=== PATIENT | male | born 1950 | race Caucasian/White ===

== ENCOUNTER 2023-11-08 12:21 | Emergency (ER) | payer MEDICARE, OTHER, SELFPAY ==
[2023-11-08 12:23] VITALS: BP 214/100
[2023-11-08 13:00] VITALS: BP 188/78; BP 200/88
--- NOTE | 2023-11-08 13:00 | EDRN ---
Soha ANGUIANO in room w/pt at this time.
--- NOTE | 2023-11-08 13:13 | ED.GENMED ---
History of Present Illness
<Yvrose Hwang PA-C - Last Filed: 11/08/23 20:08>
General
Chief Complaint: Blood Pressure Problem
Source: patient
Exam Limitations: none
Time Seen by Provider: 11/08/23 12:47
Nursing documentation reviewed up to this point in time: agreed with
Travel History
Have you had any contact with someone who has COVID-19?: No
Do you have any symptoms of coronavirus? Fever > 100 degrees, chills, cough, shortness of breath, sore throat, loss of taste or smell, muscle aches, or headache?: No
History of Present Illness
History of Present Illness:
Patient is a 72-year-old male with history hypertension, CAD, hyperlipidemia, diabetes presenting for evaluation of high blood pressure readings at home. Patient states that he was feeling flushed and generally unwell when he checked his blood
pressure earlier this morning and had a reading of 170s/70s. Patient denies any chest pain, shortness of breath, back pain, visual changes, numbness/weakness. He does report a very mild headache that he took some Tylenol earlier today which seemed
to help. He states the headache was a gradual onset and is a 5 out of 10 in severity.
Patient recently had a change in his blood pressure medication from labetalol to nebivolol. He stopped taking labetalol on 10/31. He started Bystolic on 11/05. He has been taking labetalol 200 mg for about a month but was not responding well to the
agent�reporting lower leg swelling and facial tingling. Prior to the labetalol he had been on metoprolol for many years until it seemed to stop controlling his blood pressure a few months ago.
In addition�patient also takes amlodipine and lisinopril for blood pressure management. He sees Dr. Nunn as his insurance processing clerk
Past History
<Yvrose Hwang PA-C - Last Filed: 11/08/23 20:08>
Past History
ED Past Medical History: CAD (1 stent 22 yrs ago), HTN and Other (Diverticulosis)
ED Past Surgical History: Other (Colonoscopy with polyp removal)
Social History
Tobacco: Non-smoker
Personal:
Living: with family
Phy Exam
<Yvrose Hwang PA-C - Last Filed: 11/08/23 20:08>
Physical Exam
Physical Exam:
General: In no apparent distress and non-toxic
Vitals: Hypertensive, otherwise vital signs stable; afebrile
HEENT: Atraumatic, normocephalic; pupils equal round and reactive to light bilaterally, extraocular muscles intact; protecting airway
Neck: appears supple
CV: RRR, heart sounds normal, no evidence of cyanosis
Resp: No evidence of respiratory distress, lungs clear
Abd: Soft, nontender, Non-distended
Extremities: No deformities
Neuro: alert and oriented x 3 to person, place, time; speech normal, sensation fully intact, strength 5/5 in upper and lower extremities, CN II-XII intact
Psych: Normal affect
Skin: Intact, no rashes
Course
<Yvrose Hwang PA-C - Last Filed: 11/08/23 20:08>
Orders/Labs/Results
Orders:
Orders
11/08/23 13:19
Electrocardiogram (*1) Urgent
Reason for Study: Chest Pain
Cardiac Monitoring- Treatment ONCE
EKG- Treatment ONCE
IV Insert/Care/Rem.- Treatment PRN
11/08/23 13:24
Electrocardiogram (*1) Urgent
Reason for Study: Hypertension, Benign
11/08/23 13:25
EKG- Treatment ONCE
11/08/23 13:29
Complete Blood Count/With Diff Urgent
Comprehensive Metabolic Panel Urgent
Troponin I Urgent
11/08/23 14:50
HydrALAZINE [Apresoline] 10 mg PO NOW STA
Abnormal Lab Results
11/08/23
13:29
Absolute Monos (auto) 1.0 H 10^3/uL
(0.1-0.6)
Monocytes % 12.0 H %
(1.7-9.3)
Glucose 105 H mg/dl
(70-99)
11/08/23 13:29
11/08/23 13:29
Vital Signs
Blood pressure: 188/78
Initial and Last Documented VS:
Initial Vital Signs
Temp Pulse Resp BP Pulse Ox
97.8 F 70 16 214/100 98
11/08/23 12:23 11/08/23 12:23 11/08/23 12:23 11/08/23 12:23 11/08/23 12:23
Last Documented Vital Signs
Temp Pulse Resp BP Pulse Ox
97.8 F 52 15 180/75 94
11/08/23 12:23 11/08/23 15:18 11/08/23 15:15 11/08/23 15:18 11/08/23 15:15
<Marta Ray MD - Last Filed: 11/08/23 14:10>
Orders/Labs/Results
Orders:
Orders
11/08/23 13:19
Electrocardiogram (*1) Urgent
Reason for Study: Chest Pain
Cardiac Monitoring- Treatment ONCE
EKG- Treatment ONCE
IV Insert/Care/Rem.- Treatment PRN
11/08/23 13:24
Electrocardiogram (*1) Urgent
Reason for Study: Hypertension, Benign
11/08/23 13:25
EKG- Treatment ONCE
11/08/23 13:29
Complete Blood Count/With Diff Urgent
Comprehensive Metabolic Panel Urgent
Troponin I Urgent
11/08/23 14:50
HydrALAZINE [Apresoline] 10 mg PO NOW STA
Abnormal Lab Results
11/08/23
13:29
Absolute Monos (auto) 1.0 H 10^3/uL
(0.1-0.6)
Monocytes % 12.0 H %
(1.7-9.3)
Glucose 105 H mg/dl
(70-99)
11/08/23 13:29
11/08/23 13:29
Vital Signs
Initial and Last Documented VS:
Initial Vital Signs
Temp Pulse Resp BP Pulse Ox
97.8 F 70 16 214/100 98
11/08/23 12:23 11/08/23 12:23 11/08/23 12:23 11/08/23 12:23 11/08/23 12:23
Last Documented Vital Signs
Temp Pulse Resp BP Pulse Ox
97.8 F 52 15 180/75 94
11/08/23 12:23 11/08/23 15:18 11/08/23 15:15 11/08/23 15:18 11/08/23 15:15
<Yvrose Hwang PA-C - Last Filed: 11/08/23 20:08>
MDM/Problems Addressed
Differential Diagnosis Includes:
Asymptomatic hypertension, hypertensive urgency/emergency, doubt intraparenchymal hemorrhage
MDM/Problems Addressed:
Patient is a 72-year-old male with history as documented presenting for high blood pressure readings at home. On multiple antihypertensives with recent changes by cardiology. He feels 'flushed 'and very dull gradual onset headache, but otherwise
asymptomatic. He denies any chest pain or shortness of breath. He is hypertensive on arrival. Heart rate has been in low 60s. EKG shows sinus bradycardia with occasional PVCs�compared with prior EKG and remains relatively unchanged. He has a
normal neurologic exam. He just started Bystolic about 2 days ago. It is possible that it has not had time to take full effect. Will check basic labs. Given multiple antihypertensives and borderline bradycardic heart rate�will touch base with
cardiology for recommendations on blood pressure management. Patient is extremely well-appearing, no apparent distress. If labs normal�anticipate discharge with cardiology follow-up outpatient.
CBC and CMP without any clinically significant abnormalities.
Discussed with Dr. Garcia, cardiology. He recommends adding hydralazine 10 mg p.o. 3 times daily to current regimen. Recommend that patient call with blood pressure readings on Friday.
Discussed with patient. He is agreeable with medication adjustment. Instructed patient to continue all other medications as will discharge with return precautions, cardiology follow-up outpatient. Patient and patient's comfortable this plan.
All questions answered.
Chronic conditions affecting care:
HTN, HLD, CAD
Acute Exacerbation and/or Progression of Chronic Illness:
Acutely hypertensive
<Yvrose Hwang PA-C - Last Filed: 11/08/23 20:08>
*Pulse Oximetry
Patient hypoxic: no
*EKG
Interpreted by ED Provider?: Yes
EKG Intrepretation Date: 11/08/23
Interpretation: normal
Comparison EKG: changes noted
Heart Rate: 59
Rate: bradycardiac
Rhythm: sinus and PVC's
Ischemia: no ischemia
*Engineering Test Specialist Interpretation
Rate: normal
Interpretation: abnormal
Heart Rate: 64
Rhythm: sinus
*Critical Care Note
Total Time (30-74mins, 75-104mins- exclusive of procedures): Not Applicable
Data Reviewed
Further Testing Considered But Not Given:
CT head�patient reports very gradual onset dull headache relieved with Tylenol
<Yvrose Hwang PA-C - Last Filed: 11/08/23 20:08>
Patient Management
Discussion with other providers: Photoengraving Apprentice (Cardiology)
ED Attending Note
<Yvrose Hwang PA-C - Last Filed: 11/08/23 20:08>
-
Portions of this chart may have been created with voice recognition software.� Occasional wrong word or��sound alike� substitutions may have occurred due to the inherent limitations of voice recognition software.
<Marta Ray MD - Last Filed: 11/08/23 14:10>
ED Attending Note
Patient seen and examined by attending physician: Yes
I performed the substantive portion of visit, reviewed & personally made and approve the management plan that is documented in note by myself or HARSHA.: Yes
ED Attending Note:
Patient looks well and comfortable. He has a normal neurological exam. He denies chest pain or shortness of breath. Patient just started taking Bystolic 10 mg 2 days ago. It may not have been enough time for the Bystolic to be effective. If
labs are stable, patient will likely be able to go home and follow-up with cardiology as an outpatient to have blood pressure rechecked.
Discharge Plan
Departure
Patient Disposition: Home (Routine Discharge)
Date of Disposition: 11/08/23
Time of Disposition: 14:58
Patient with high blood pressure during this ER visit?: Yes
Condition: Good
Covid-19: Not Applicable
Discharge Problem:
Asymptomatic hypertension
Instructions: High Blood Pressure (DC), High blood pressure emergencies
Prescriptions:
New
hydralazine 10 mg tablet
10 mg PO TID 30 Days Qty: 90 0RF
No Action
metoprolol succinate 50 MG tablet extended release 24 hr
50 mg PO DAILY
aspirin 81 MG tablet,delayed release (DR/EC)
81 mg PO DAILY
rosuvastatin [Crestor] 40 MG tablet
40 mg PO QPM
Fiber 6 1,000 MG tablet
3 tab PO BID
Docusate Sodium [Stool Softener] 250 MG Capsule
250 mg PO DAILYPRN PRN (Reason: constipation)
amlodipine 5 MG tablet
5 mg PO DAILY
lisinopril 20 MG tablet
20 mg PO BID
clopidogrel [clopidogrel] 75 mg tablet
75 mg PO DAILY Qty: 90 10RF
pantoprazole [pantoprazole] 40 mg tablet,delayed release (DR/EC)
40 mg PO DAILY Qty: 90 10RF
nitroglycerin [nitroglycerin] 0.4 mg tablet, sublingual
0.4 mg sublingual [id number] PRN (Reason: chest pain) Qty: 25 5RF
hydrochlorothiazide 25 mg tablet
25 mg PO DAILY Qty: 90 5RF
Referrals:
Alona Campos MD [Family Provider] -
Joselo Nunn MD [Active] - Call in 1-3 days for appt
Activity Restrictions/Additional Instructions:
- Return to the emergency department with any severe headache, chest pain, severe abdominal pain, shortness of breath, visual changes, severe back pain, numbness/tingling, weakness, worsening current symptoms, or any other concerns
-You should continue to take your medications as prescribed. You should start the hydralazine 10 Mg 3 times a day as recommended by cardiology
-Is important to stay well-hydrated
-As discussed�you should call your insurance processing clerk on Friday for follow-up
Interventions
Interventions:
*Risk Screen - Suicide Last Done: 11/08/23 12:23
*General Assessment Last Done: 11/08/23 12:23
*Neglect/Abuse Screening Last Done: 11/08/23 12:23
ED- Fall Risk Assessment Last Done: 11/08/23 13:18
*ED COVID-19 Vaccine History Last Done: 11/08/23 13:18
*Nursing Disposition Last Done: 11/08/23 15:30
ED- Cardiac Assessment Last Done: 11/08/23 13:50
ED- Neurological Assessment Last Done: 11/08/23 13:50
ED- Pulmonary Assessment Last Done: 11/08/23 13:50
Discharge Date and Time
Discharge Date/Time: 11/08/23 15:30
[2023-11-08 13:18] VITALS: BMI 29.4
[2023-11-08 13:40] LABS: % Basophils 0.8 % (0-2); % Eosinophils 1.6 % (0-6); % Immature Granulocytes 0.4 % (0-0.5); % Lymphocytes 35.1 % (20.5-51.1); % Neutrophils 50.1 % (42.2-75.2); Absolute Basophils 0.1 10^3/uL (0-0.2); Absolute Eosinophils 0.1 10^3/uL (0-0.7); Absolute Lymphocytes 2.8 10^3/uL (1.2-3.4); Hematocrit 51.9 % (39.0-52.0); Hemoglobin 17.5 g/dL (13.0-18.0); Mean Corp Hgb Conc. 33.7 g/dL (33.0-37.0); Mean Corpuscular Hgb 29.2 pg (27.0-31.0); Mean Corpuscular Volume 86.5 fL (80.0-94.0); Mean Platelet Volume 9.4 fL (7.4-10.4); Nucleated Red Blood Cells % 0 % (-); Platelet Count 224 10^3/uL (130-400); Red Cell Dist. Width 13.9 % (11.5-14.5); White Blood Cell Count 7.9 10^3/uL (4.8-10.8)
[2023-11-08 14:00] VITALS: BP 197/91
[2023-11-08 14:03] LABS: Troponin I 0.016 ng/ml
[2023-11-08 14:09] LABS: ALT (SGPT) 38 U/L (0-50); AST (SGOT) 39 U/L (17-59); Albumin 4.3 g/dl (3.5-5.0); Alkaline Phosphatase 73 U/L (38-126); Blood Urea Nitrogen 19 mg/dl (9-20); Calcium 9.2 mg/dl (8.4-10.2); Carbon Dioxide 23 mmol/L (22-30); Chloride 107 mmol/L (98-107); Estimated Creatinine Clearance 72 ml/min; Glucose 105 mg/dl (70-99); Potassium 4.5 mmol/L (3.5-5.1); Sodium 138 mmol/L (135-145); Total Bilirubin 0.8 mg/dl (0.2-1.3); eGFR > 60.00
[2023-11-08 14:45] VITALS: BP 195/74
[2023-11-08 15:00] VITALS: BP 180/75
[2023-11-08] MEDS: APRESOLINE 10 MG PO (15:18)
== END 2023-11-08 15:30 | disposition home or self-care (01) ==
LOC: EMR 12:21
PROVIDERS: Physician Assistant; EMERGENCY PHYSICIAN Emergency Medicine; FAMILY PHYSICIAN Family Medicine
DX: I10 Essential (primary) hypertension (principal); E11.9 Type 2 diabetes mellitus without complications; E78.00 Pure hypercholesterolemia, unspecified; I25.10 Atherosclerotic heart disease of native coronary artery without angina pectoris
CPT/HCPCS: 99283; 80053; 84484; 85025; 93005

== ENCOUNTER 2023-12-08 15:18 | Emergency (ER) | payer MEDICARE, OTHER, SELFPAY ==
[2023-12-08 15:27] VITALS: BP 185/83
[2023-12-08 15:50] LABS: % Basophils 0.5 % (0-2); % Eosinophils 1.6 % (0-6); % Immature Granulocytes 0.5 % (0-0.5); % Lymphocytes 37.5 % (20.5-51.1); % Monocytes 9.8 % (1.7-9.3); % Neutrophils 50.1 % (42.2-75.2); Absolute Eosinophils 0.1 10^3/uL (0-0.7); Absolute Monocytes 0.8 10^3/uL (0.1-0.6); Hematocrit 46.9 % (39.0-52.0); Hemoglobin 15.9 g/dL (13.0-18.0); Mean Corp Hgb Conc. 33.9 g/dL (33.0-37.0); Mean Corpuscular Hgb 29.3 pg (27.0-31.0); Mean Corpuscular Volume 86.4 fL (80.0-94.0); Mean Platelet Volume 9.5 fL (7.4-10.4); Nucleated Red Blood Cells % 0 % (-); Platelet Count 201 10^3/uL (130-400); Red Blood Cell Count 5.43 10^6/uL (4.70-6.10); Red Cell Dist. Width 14.3 % (11.5-14.5); White Blood Cell Count 7.9 10^3/uL (4.8-10.8)
[2023-12-08 16:02] LABS: ALT (SGPT) 34 U/L (0-50); AST (SGOT) 38 U/L (17-59); Alkaline Phosphatase 90 U/L (38-126); Blood Urea Nitrogen 24 mg/dl (9-20); Carbon Dioxide 22 mmol/L (22-30); Chloride 110 mmol/L (98-107); Glucose 141 mg/dl (70-99); Potassium 4.3 mmol/L (3.5-5.1); Sodium 136 mmol/L (135-145); Total Bilirubin 0.4 mg/dl (0.2-1.3); Total Protein 6.7 g/dl (6.3-8.2); eGFR > 60.00
[2023-12-08 16:14] LABS: NT-proBNP 1030 pg/ml; Troponin I 0.019 ng/ml
[2023-12-08 20:10] VITALS: BMI 29.6
[2023-12-08 20:16] VITALS: BP 197/89
[2023-12-08 21:00] VITALS: BP 183/78
--- NOTE | 2023-12-08 21:11 | ED.GENMED ---
History of Present Illness
General
Chief Complaint: Breathing Problem
Time Seen by Provider: 12/08/23 21:11
Travel History
Have you had any contact with someone who has COVID-19?: No
Do you have any symptoms of coronavirus? Fever > 100 degrees, chills, cough, shortness of breath, sore throat, loss of taste or smell, muscle aches, or headache?: No
History of Present Illness
History of Present Illness:
HPI: The patient presents due to concerns of adverse reaction to spironolactone use. The patient had been on hydrochlorothiazide which was stopped (which was started for further blood pressure control). The HCTZ was switched to spironolactone.
Before the HCTZ, he was on 2 other blood pressure medications. He is still taking lisinopril, amlodipine and metoprolol. He has some vague chest discomfort and some trouble breathing. He does not have a history of heart failure. He has some
cramping in the legs which he has had in the past. He feels that his mouth is dry after starting the spironolactone.
EXAM:
GENERAL: Well appearing in no distress, he is hypertensive
HEENT: Moist oral mucosa
CARDIOVASCULAR: No murmurs, normal heart rate, regular rhythm, No chest wall tenderness
PULMONARY: No respiratory distress, breath sounds are clear and equal
ABDOMEN: Soft with no peritoneal signs, no tenderness
NEUROLOGIC: Excellent strength all extremities, no coordination deficits
PSYCHIATRIC: Appropriate mental status, normal insight and judgement
EXTREMITIES: Nontender, trace bilateral lower extremity edema, moves all extremities equally
SKIN: No rash, no lesions
TIME OF INITIAL ENCOUNTER: 9:30 PM
NUMBER AND COMPLEXITY OF PROBLEMS ADDRESSED AT THE ENCOUNTER
� Chronic conditions affecting care: CAD/UT, high blood pressure, hyperlipidemia, diabetes
� Acute Exacerbation and/or Progression of Chronic Illness: This is an acute problem
� Differential Diagnosis includes: Adverse medication effect, poorly controlled blood pressure, ACS, CHF
AMOUNT AND/OR COMPLEXITY OF DATA TO BE REVIEWED AND ANALYZED
� I performed an independent evaluation of and my interpretation is:
EKG: Sinus 70, normal axis, PACs
CT:
X-rays: I personally reviewed the chest x-ray and agree with radiologist interpretation that there is no acute abnormality
Laboratory Studies: CBC and chemistries relatively unremarkable, troponin 0.019, BNP is 1030
Other:
� Review of other/old records: I reviewed echo report from October 2022, EF was 40 to 45% at that time, there was aortic sclerosis without stenosis
� Clinical information was obtained by an independent historian: I spoke to the at bedside
� Prescriptions/Medications Considered but not given:
� Further testing considered but not performed:
RISK OF COMPLICATIONS AND/OR MORBIDITY OR MORTALITY OF PATIENT MANAGEMENT
� Social determinants of health affecting care: Lives at home
� Discussion with other providers:
� Escalation of care including admission/observation vs risk of discharge considered: The patient appears to perseverate over the fact that he does not tolerate his recent blood pressure medication changes. Most recently he has
not tolerated spironolactone. He is hypertensive here but already taking 3 other antihypertensives. Cardiac workup shows no ACS and symptoms have been ongoing for a week therefore only 1 troponin was obtained. Physical exam is not consistent with
heart failure but BNP is borderline elevated and he has had a decreased EF in the past. Chest x-ray shows no clear acute abnormality. The patient is very well-appearing on reassessment at 10:20 PM. Will use chest pain hotline to ensure close
outpatient follow-up.
Past History
Past History
ED Past Medical History: CAD (1 stent 22 yrs ago), HTN and Other (Diverticulosis)
ED Past Surgical History: Other (Colonoscopy with polyp removal)
Social History
Tobacco: Non-smoker
Personal:
Living: with family
Phy Exam
Physical Exam
Physical Exam:
See HPI
Scores
Heart Failure Risk
Heart Failure Risk Score: Not Applicable
Course
Orders/Labs/Results
Orders:
Orders
12/08/23 15:29
Electrocardiogram (*1) Urgent
Reason for Study: Shortness of Breath
12/08/23 15:30
EKG- Treatment ONCE
12/08/23 15:42
BNP [NT-proBNP] Urgent
Complete Blood Count/With Diff Urgent
Comprehensive Metabolic Panel Urgent
Troponin I Urgent
12/08/23 21:10
CXR2 [CR Chest - 2 Views ] Urgent
Comment:
Reason For Exam: dyspnea
Abnormal Lab Results
12/08/23
15:42
Absolute Monos (auto) 0.8 H 10^3/uL
(0.1-0.6)
Monocytes % 9.8 H %
(1.7-9.3)
Chloride 110 H mmol/L
(98-107)
BUN 24 H mg/dl
(9-20)
Glucose 141 H mg/dl
(70-99)
12/08/23 15:42
12/08/23 15:42
Vital Signs
Initial and Last Documented VS:
Initial Vital Signs
Temp Pulse Resp BP Pulse Ox
98.6 F 73 18 185/83 97
12/08/23 15:27 12/08/23 15:27 12/08/23 15:27 12/08/23 15:27 12/08/23 15:27
Last Documented Vital Signs
Temp Pulse Resp BP Pulse Ox
97.4 F 54 22 178/71 94
12/08/23 20:14 12/08/23 22:15 12/08/23 22:15 12/08/23 22:11 12/08/23 22:15
*Critical Care Note
Total Time (30-74mins, 75-104mins- exclusive of procedures): Not Applicable
ED Attending Note
-
Portions of this chart may have been created with voice recognition software.� Occasional wrong word or��sound alike� substitutions may have occurred due to the inherent limitations of voice recognition software.
Discharge Plan
Departure
Prescriptions:
No Action
metoprolol succinate 50 MG tablet extended release 24 hr
50 mg PO DAILY
aspirin 81 MG tablet,delayed release (DR/EC)
81 mg PO DAILY
rosuvastatin [Crestor] 40 MG tablet
40 mg PO QPM
Fiber 6 1,000 MG tablet
3 tab PO BID
Docusate Sodium [Stool Softener] 250 MG Capsule
250 mg PO DAILYPRN PRN (Reason: constipation)
amlodipine 5 MG tablet
5 mg PO DAILY
lisinopril 20 MG tablet
20 mg PO BID
clopidogrel [clopidogrel] 75 mg tablet
75 mg PO DAILY Qty: 90 10RF
pantoprazole [pantoprazole] 40 mg tablet,delayed release (DR/EC)
40 mg PO DAILY Qty: 90 10RF
nitroglycerin [nitroglycerin] 0.4 mg tablet, sublingual
0.4 mg sublingual [id number] PRN (Reason: chest pain) Qty: 25 5RF
hydrochlorothiazide 25 mg tablet
25 mg PO DAILY Qty: 90 5RF
hydralazine 10 mg tablet
10 mg PO TID 30 Days Qty: 90 0RF
Referrals:
Alona Campos MD [Family Provider] -
Interventions
Interventions:
*Risk Screen - Suicide Last Done: 12/08/23 15:27
*General Assessment Last Done: 12/08/23 15:27
*Neglect/Abuse Screening Last Done: 12/08/23 15:27
*ED COVID-19 Vaccine History Last Done: 12/08/23 15:27
ED- Cardiac Assessment Last Done: 12/08/23 20:19
ED- Pulmonary Assessment Last Done: 12/08/23 20:19
Discharge Date and Time
Print Language: JAPANESE
[2023-12-08 22:11] VITALS: BP 178/71
== END 2023-12-08 22:58 | disposition home or self-care (01) ==
LOC: EMR 15:18
PROVIDERS: Emergency Medicine; EMERGENCY PHYSICIAN Emergency Medicine; FAMILY PHYSICIAN Family Medicine
DX: R07.89 Other chest pain (principal); R06.00 Dyspnea, unspecified; R25.2 Cramp and spasm; T50.0X5A Adverse effect of mineralocorticoids and their antagonists, initial encounter; I10 Essential (primary) hypertension; I25.10 Atherosclerotic heart disease of native coronary artery without angina pectoris; K57.90 Diverticulosis of intestine, part unspecified, without perforation or abscess without bleeding; Z79.899 Other long term (current) drug therapy; Z95.5 Presence of coronary angioplasty implant and graft; Z91.040 Latex allergy status; Z91.048 Other nonmedicinal substance allergy status; Z79.82 Long term (current) use of aspirin
CPT/HCPCS: 99283; 71046; 80053; 83880; 84484; 85025; 93005

== ENCOUNTER → 2024-06-23 08:52 | Outpatient (REF) | payer MEDICARE, OTHER, SELFPAY | LOC: RAD 08:52 | PROVIDERS: ATTENDING PHYSICIAN Surgery Vascular Surgery; FAMILY PHYSICIAN Family Medicine | DX: I73.9 Peripheral vascular disease, unspecified (principal); I65.23 Occlusion and stenosis of bilateral carotid arteries | CPT/HCPCS: 93880; 93922; 93925; 93978 ==

== ENCOUNTER 2024-08-29 12:46 | Inpatient (IN) | payer MEDICARE, OTHER, SELFPAY ==
[2024-08-29] VITALS (8 sets, daily range): BP systolic 144–182; BP diastolic 69–86; BMI 29.8; BMI 28.7
--- NOTE | 2024-08-29 10:18 | ED.GENMED ---
History of Present Illness
General
Chief Complaint: Breathing Problem
Source: patient and records
Time Seen by Provider: 08/29/24 10:00
History of Present Illness
History of Present Illness:
73-year-old male with past medical history of previous VT, CAD post stenting, hypertension, hyperlipidemia, tcp-wsvnopd-yhqodazhf diabetes presenting to the ER with what he states is at least 2 weeks of shortness of breath without any other
associated symptoms. Patient notes that prior to [place] he had subjective fever, chills and a cough that lasted for a few days and resolved but patient does not believe he had the shortness of breath until a week or 2 after this. He states he
went to his family doctor because he was feeling maybe he had a little bit of postnasal drip and throat irritation, started on prednisone a couple of days ago but has not had any relief and still feels short of breath. Patient states symptoms do
not seem to be exertional but he does note when he was out in the cold the other day and walking into an office he felt very symptomatic from that. Patient denies any lower extremity edema, chest pain, palpitations, diaphoresis, abdominal pain,
nausea, vomiting. Patient does note following his illness his also became ill and is starting to feel little bit better. No other concerns at this time
Past History
Past History
ED Past Medical History: CAD (1 stent 22 yrs ago), HTN, Hypercholesterolemia, NIDDM, VT and Other (Diverticulosis)
ED Past Surgical History: Other (Colonoscopy with polyp removal)
Social History
Tobacco: Non-smoker
Alcohol: None
Drug: None
Personal:
Living: with family
Review of Systems
Review of Systems
All Other Systems: ROS reviewed and negative except as documented in HPI and ROS
Phy Exam
Physical Exam
Physical Exam:
GENERAL: Alert , in no apparent distress, overweight
EYE: conjunctiva clear
NECK: Supple
ENT: o/p clr, mmm.
CARDIAC: Regular rate and rhythm, occasional ectopy
LUNGS: Clear breath sounds bilaterally, no acute respiratory distress, no wheezes/rales/rhonchi
NEUROLOGICAL: Alert and oriented
SKIN: Warm and dry, skin intact.
MUSCULOSKELETAL: well perfused. No edema
PSYCH: Normal and appropriate interaction.
Scores
Heart Failure Risk
Heart Failure Risk Score: Not Applicable
Heart Score for Chest Pain Patients
STEMI patient?: Not applicable
Withdrawal Assessment of Alcohol
Withdrawal Assessment Completed?: Not applicable
Course
Orders/Labs/Results
Orders:
Orders
08/29/24 09:42
Electrocardiogram (*1) Urgent
Reason for Study: Shortness of Breath
EKG- Treatment ONCE
CR Chest - 2 Views Urgent
Comment:
Reason For Exam: sob
08/29/24 10:58
Complete Blood Count/With Diff Urgent
Comprehensive Metabolic Panel Urgent
NT-proBNP Urgent
TSH Urgent
Troponin I Urgent
08/29/24 12:24
Admit/Transfer Patient As Directed
Co-Sign Provider:
Level of Care: Inpatient admission
Assign to:: Telemetry
Physician / Group: Dr. Marc Forrest
Diagnosis: Elevated Troponin
Reason for Telemetry: Other
Other Reason for Telemetry: New Left Bundle Branch Block
Date to Stop Telemetry: 08/31/24
Time to Stop Telemetry: 11:00
Reason for Hospitalization: Elevated Troponins with new Left Bundle Branch Block seen on ECG
Expected length of stay greater than two midnights?: Yes
ELOS- Estimated Length of Stay in days: 3
I certify the patient meets the requirements for IP care: Yes
08/29/24 12:25
PRN Pain Medication Management As Directed
May give lesser potent ordered pain med per pt: Yes
preference::
Protocol:: Medication orders for pain may be administered in a
manner that supports deferring to patient preference
when the pt is:
- Requesting an ordered lesser potent pain medication.
Least to most potent pain medications are defined
as: acetaminophen < NSAID < tramadol < opioids
(morphine, oxycodone, hydromorphone).
- Requesting a lesser dose of the same medication IF
ORDERED.
- Requesting a less intrusive route of administration
if both routes are prescribed by the provider (PO <
IV).
08/29/24 12:28
Code Status As Directed
Resuscitation Status: Do not resuscitate
Reached after discussion with pt or family/Healthcare POA: Yes
DNR Bracelet Application ONCE
08/29/24 12:38
Echo 2D MMode Color/Doppler Routine
Reason for Study: SOB
08/29/24 12:41
CT Chest PE Study Urgent
Comment:
Reason For Exam: PE
08/31/24 11:00
DC Protocol for Telemetry ONCE
Abnormal Lab Results
08/29/24
10:58
WBC 12.7 H 10^3/uL
(4.8-10.8)
Abs Immat Gran (auto) 0.3 H 10^3/uL
(0-0.05)
Absolute Neuts (auto) 8.2 H 10^3/uL
(1.4-6.5)
Absolute Monos (auto) 1.6 H 10^3/uL
(0.1-0.6)
Immature Gran % 2.3 H %
(0-0.5)
Lymphocytes % 19.8 L %
(20.5-51.1)
Monocytes % 12.3 H %
(1.7-9.3)
BUN 24 H mg/dl
(9-20)
Glucose 179 H mg/dl
(70-99)
Troponin I 0.046 H* ng/ml
Total Protein 6.2 L g/dl
(6.3-8.2)
08/29/24 10:58
08/29/24 10:58
Vital Signs
Initial and Last Documented VS:
Initial Vital Signs
Temp Pulse Resp BP Pulse Ox
97.6 F 62 18 174/79 97
08/29/24 09:40 08/29/24 09:40 08/29/24 09:40 08/29/24 09:40 08/29/24 09:40
Last Documented Vital Signs
Temp Pulse Resp BP Pulse Ox
97.6 F 76 19 161/83 92
08/29/24 09:40 08/29/24 12:15 08/29/24 12:15 08/29/24 12:00 08/29/24 12:15
MDM/Problems Addressed
Differential Diagnosis Includes:
Pneumonia, CHF, myocarditis/pericarditis, atypical ACS presentation, valvular disease, cardiac dysrhythmia
MDM/Problems Addressed:
73-year-old male presenting to the ER for evaluation of shortness of breath that has been gradually worsening over the last 2+ weeks. Patient does endorse a recent upper respiratory infection prior to this with symptoms seemingly resolved. He is
hemodynamically stable here, no acute respiratory distress. He does have significant arterial disease in his past medical history. EKG and chest x-ray were ordered from triage with patient's EKG showing a new left bundle branch block and frequent
PVCs. Due to the new left bundle branch block combined with patient's past medical history will consult with cardiology as patient may need further intervention/testing. Labs ordered.
Chronic conditions affecting care: CAD
Acute Exacerbation and/or Progression of Chronic Illness: CAD
*Radiology
Radiology exam reviewed: radiology read reviewed
*Pulse Oximetry
Patient hypoxic: no
*EKG
Interpreted by ED Provider?: Yes
Heart Rate: 70
Rate: normal
Rhythm: sinus and PVC's
QRS Pattern: left bundle branch block
*Wire Wheeler Interpretation
Rate: normal
Rhythm: sinus and PVC's
*Critical Care Note
Total Time (30-74mins, 75-104mins- exclusive of procedures): Not Applicable
Data Reviewed
Review of Other/Old Records Reveals: Labs, Records and Operative Reports
Patient Management
Discussion with other providers: Hospitalist and [facility]
Escalation/DeEscalation of care consider admission/obs:
Patient has a slightly elevated troponin at 0.046 and BN P elevated at greater than 3000. Chest x-ray shows small bilateral pleural effusions. At this time still unclear etiology for patient's shortness of breath. Could still potentially be
myocarditis, PE also considered given the elevated BNP and troponin although symptoms do not seem to be too suggestive of a PE, still question valvular disease as well. Notified cardiology team who will consult on the patient. Hospitalist team
accepts for continued evaluation and treatment
ED Attending Note
-
Portions of this chart may have been created with voice recognition software.� Occasional wrong word or��sound alike� substitutions may have occurred due to the inherent limitations of voice recognition software.
Discharge Plan
Departure
Patient Disposition: Admit
Date of Disposition: 08/29/24
Time of Disposition: 11:43
Presentation/result/management discussed w/ accepting MD/DO: Hospitalist
Discharge Problem:
Shortness of breath, Elevated troponin
Interventions
Interventions:
*Risk Screen - Suicide Last Done: 08/29/24 11:00
*General Assessment Last Done: 08/29/24 11:00
*Neglect/Abuse Screening Last Done: 08/29/24 11:00
ED- Fall Risk Assessment Last Done: 08/29/24 11:00
*ED COVID-19 Vaccine History Last Done: 08/29/24 11:00
ED- Cardiac Assessment Last Done: 08/29/24 11:00
ED- Pulmonary Assessment Last Done: 08/29/24 11:00
[2024-08-29 11:10] LABS: % Basophils 0.6 % (0-2); % Eosinophils 0.6 % (0-6); % Immature Granulocytes 2.3 % (0-0.5); % Lymphocytes 19.8 % (20.5-51.1); % Monocytes 12.3 % (1.7-9.3); % Neutrophils 64.4 % (42.2-75.2); Absolute Basophils 0.1 10^3/uL (0-0.2); Absolute Eosinophils 0.1 10^3/uL (0-0.7); Absolute Immature Granulocytes 0.3 10^3/uL (0-0.05); Absolute Lymphocytes 2.5 10^3/uL (1.2-3.4); Absolute Monocytes 1.6 10^3/uL (0.1-0.6); Absolute Neutrophils 8.2 10^3/uL (1.4-6.5); Hematocrit 49.8 % (39.0-52.0); Hemoglobin 16.6 g/dL (13.0-18.0); Mean Corp Hgb Conc. 33.3 g/dL (33.0-37.0); Mean Corpuscular Hgb 29.7 pg (27.0-31.0); Mean Corpuscular Volume 89.2 fL (80.0-94.0); Mean Platelet Volume 9.3 fL (7.4-10.4); Nucleated Red Blood Cells % 0 % (-); Platelet Count 207 10^3/uL (130-400); Red Blood Cell Count 5.58 10^6/uL (4.70-6.10); White Blood Cell Count 12.7 10^3/uL (4.8-10.8)
[2024-08-29 11:24] LABS: ALT (SGPT) 26 U/L (0-50); AST (SGOT) 26 U/L (17-59); Albumin 3.7 g/dl (3.5-5.0); Alkaline Phosphatase 74 U/L (38-126); Blood Urea Nitrogen 24 mg/dl (9-20); Calcium 8.6 mg/dl (8.4-10.2); Carbon Dioxide 26 mmol/L (22-30); Chloride 104 mmol/L (98-107); Estimated Creatinine Clearance 79 ml/min; Glucose 179 mg/dl (70-99); Sodium 138 mmol/L (135-145); Total Protein 6.2 g/dl (6.3-8.2); eGFR > 60.00
[2024-08-29 11:39] LABS: NT-proBNP 3140 pg/ml; Troponin I 0.046 ng/ml
[2024-08-29 11:56] LABS: TSH 2.07 uIU/ml (0.47-4.68)
--- NOTE | 2024-08-29 12:05 | EDRN ---
Soha Corona PA in room w/ pt at this time.
--- NOTE | 2024-08-29 12:08 | W.PN.UPDATE ---
Update Note
Progress Note Update
I personally performed a history and physical exam of the patient and discussed management with the resident. I reviewed the resident's note and agree with the documented findings and plan of care HPI/CC.
73-year-old male presents with a chief complaint of shortness of breath. He had URI symptoms in early July 2024 which improved but now shortness of breath returns. Denies chest pain.
Gen: NAD, AAOx3.
Eyes: EOMI, PERRLA, no scleral icterus.
Neck: supple.
CV: RRR, +S1/S2, no m/r/g.
Resp: CTAB, no rales, wheezes, or rhonchi.
Abd: +BS, soft, NT, ND
Skin: No rashes.
Neuro: CN 2-12 intact, non-focal.
Psych: Normal mood and affect.
Lab Results
08/29/24
10:58
WBC 12.7 H
RBC 5.58
Hgb 16.6
Hct 49.8
MCV 89.2
MCH 29.7
MCHC 33.3
RDW 14.0
Plt Count 207
MPV 9.3
Abs Immat Gran (auto) 0.3 H
Absolute Neuts (auto) 8.2 H
Absolute Lymphs (auto) 2.5
Absolute Monos (auto) 1.6 H
Absolute Eos (auto) 0.1
Absolute Basos (auto) 0.1
Immature Gran % 2.3 H
Neutrophils % 64.4
Lymphocytes % 19.8 L
Monocytes % 12.3 H
Eosinophils % 0.6
Basophils % 0.6
Nucleated RBC % 0
Sodium 138
Potassium 4.0
Chloride 104
Carbon Dioxide 26
BUN 24 H
Creatinine 0.9
Estimated Creat Clear 79
eGFR > 60.00
Glucose 179 H
Calcium 8.6
Total Bilirubin 1.0
AST 26
ALT 26
Alkaline Phosphatase 74
Troponin I 0.046 H*
Mcv-T-Mpxtnyglrzq Pept 3140
Total Protein 6.2 L
Albumin 3.7
TSH 2.07
CXR: Small bilateral pleural effusions, new since previous radiograph. Cephalization of vascular markings, suggesting elevated pulmonary venous pressures. No definite Colten B lines are identified.
SOB:
-ECG (read by me): SR with PVCs @ 70, new LBBB
-proBNP 3140
-trop 0.046, suspect nonischemic myocardial injury, cont to trend
-URI sxs started beginning Jul 2024, got steroids
-differential broad at this time and includes mild acute CHF, myocarditis, mild reactive airway syndrome
-monitor on tele
-c/s cards
-check CTA chest
-check echo
Other problems:
Essential HTN: cont Norvasc/Lisinopril/BB
CAD (h/o LAD stenting): Cont BB/ASA/statin
GERD: cont PPI
HLD: cont statin
DM2: SSI/accuchecks/diabetic diet/check a1c
--- NOTE | 2024-08-29 12:23 | EDRN ---
Dr. Forrest in room w/ pt at this time.
--- NOTE | 2024-08-29 12:51 | HPS.HSE ---
Family Physician
-
Family Physician: Alona Campos
Chief Complaint
-
Shortness of Breath
History of Present Illness
73 year old male with a past medical history of previous RI, CAT post stenting, hypertension, hyperlipidemia, and non-insulin dependent diabetes presents to the [facility] ED with shortness of breath that has last at least 2 weeks. Patient
has had no other symptoms alongside this shortness of breath. He was seen with his who said that he has had upper respiratory illness symptoms since the beginning of July which included fever and chills. His chills resolved but his
shortness of breath continued to linger. He went to his PCP who prescribed him some prednisone but that did not help with his cough/throat closing like sensation at all. Patient states that his shortness of breath mostly occurs when he is outside in
the cold and walking to his office. Patient has no other complaints or issues at this time.
Medical History
Past Medical History
Past Medical History: Reports CAD (Stent 22 years ago), HTN, Hypercholesterolemia, NIDDM, RI and Other (Diverticulosis)
Past Surgical History: Reports Other (Colonoscopy w/ polyp removal)
Social History
Tobacco: Former Smoker
Alcohol: None
Drug: None
Personal:
Living: With Family
Family History
Family History: Not pertinent
Allergies / Home Medications
Allergies reflects when Allergies were last updated in [facility].
Home Medications with original date entered in [facility]
Allergy/Medication List:
Allergies
Allergy/AdvReac Type Severity Reaction Status Date / Time
adhesive tape Allergy Rash Verified 12/08/23 15:29
latex Allergy Rash Verified 12/08/23 15:29
Home Medications
aspirin 81 mg tablet,delayed release 81 mg PO DAILY Blood clot prevention/tx 11/18/15
metoprolol succinate 50 mg tablet,extended release 24 hr 50 mg PO DAILY Blood pressure 11/18/15
rosuvastatin 40 mg tablet (Crestor) 40 mg PO QPM High cholesterol 11/18/15
Docusate Sodium [Stool Softener] 250 mg PO DAILYPRN PRN constipation 06/08/21
amlodipine 5 mg tablet 5 mg PO DAILY Blood pressure 06/08/21
zlly-vcu-fhroi-akbfvhoxn-udnxpddh-dftn-pectin 1,000 mg tablet (Fiber 6) 3 tab PO BID Supplement 06/08/21
lisinopril 20 mg tablet 20 mg PO BID Blood pressure 06/08/21
clopidogrel 75 mg tablet 75 mg PO DAILY #90 tabs 06/07/22
hydrochlorothiazide 25 mg tablet 25 mg PO DAILY #90 tabs 06/07/22
nitroglycerin 0.4 mg sublingual tablet 0.4 mg sublingual [id number] PRN chest pain #25 tabs 06/07/22
pantoprazole 40 mg tablet,delayed release 40 mg PO DAILY #90 tabs 06/07/22
hydralazine 10 mg tablet 10 mg PO TID 1 month #90 tabs 11/08/23
Review of Systems
-
History Source: Patient
Constitutional: Denies Fever, Fatigue, Sleep Disturbance or Chills
EENT: Reports No Symptoms
Respiratory: Reports Trouble Breathing
Cardiac: Denies Chest Pain or Palpitations
Abdomen/GI: Denies Abdominal Pain, Nausea or Vomiting
: Reports No Symptoms
Musculoskeletal: Denies Edema
Skin: Reports No Symptoms
Neurological: Reports No Symptoms
Endocrine: Reports No Symptoms
Hematologic/Lymphatic: Reports No Symptoms
Psych: Reports Calm
Physical Exam
Vital Signs
Vital Signs
Temp Pulse Resp BP Pulse Ox
97.6 F 76 19 161/83 92
08/29/24 09:40 08/29/24 12:15 08/29/24 12:15 08/29/24 12:00 08/29/24 12:15
Physical Exam
General: Well Developed, Well Nourished, No Apparent Distress, Comfortable and Conversant
HEENT: NormoCephalic, Anicteric, Moist mucous membranes and Atraumatic
Respiratory: Clear and Non Labored Respirations
Cardiac: S1/S2 and Regular Rhythm
GI: Soft, Non Tender, Non Distended and Normal Bowel Sounds
Musculoskeletal: No Clubbing, No Cyanosis and No Edema
Skin: Warm and Dry
Neuro: Awake, Alert, Oriented, AO x 3, No Motor Deficits and No Sensory Deficits
Psych: Calm and Intact Judgment/Insight
Laboratory Results
-
08/29/24 10:58
08/29/24 10:58
Laboratory Results
Total Bilirubin 1.0 mg/dl (0.2-1.3) 08/29/24 10:58
AST 26 U/L (17-59) 08/29/24 10:58
ALT 26 U/L (0-50) 08/29/24 10:58
Alkaline Phosphatase 74 U/L (38-126) 08/29/24 10:58
Troponin I 0.046 ng/ml H* 08/29/24 10:58
Data Reviewed
-
Medical Tests (Nuc Med, Echo, EKG etc): Report Reviewed by me, Discussed with Physician, Discussed with Patient and Discussed with Family
Lab Data: Labs Reviewed by me, Discussed with Physician, Discussed with Patient and Discussed with Family
Impression/Plan
-
Assessment:
73 year old male with a past medical history of previous RI, CAD s/p stent, hypertension, hyperlipidemia, and non-insulin dependent diabetes presented to the [facility] ER with worsening shortness of breath. Patient was afebrile and had no
other symptoms other than shortness of breath. Patient was found to have elevated troponins and a new LBBB seen on EKG. Patient was admitted to the hospital for further monitoring and treatment.
Plan:
#Shortness of breath
-CXR showed Small bilateral pleural effusions, new since previous radiograph. Cephalization of vascular markings, suggesting elevated pulmonary venous pressures. No definite Colten B lines are identified.
-O2 saturation Stable on Room Air
-CTA ordered, awaiting results
#History of CAD
-elevated troponins
-Trend troponins
-Cardiology consulted, input appreciated
-LBBB seen on ECG
-repeat ECG in the AM
-Echocardiogram ordered, awaiting results
-Continue Aspirin
#Hyperlipidemia
-Continue rosuvastatin
#GERD
-continue Protonix
#Hypertension
-Continue home medications of metoprolol, lisinopril and amlodipine
#NIDDM
-insulin sliding scale
-Accuchecks
-continue monitoring blood glucose
-hold glimepiride
Code: Limited DNR
DVT Prophylaxis: Lovenox
[2024-08-29] MEDS: TYLENOL 1000 MG PO (12:58)
--- NOTE | 2024-08-29 13:06 | EDRN ---
Pt c/o H/A and requested tylenol and just got order and administered it at this time.
--- NOTE | 2024-08-29 13:47 | EDRN ---
On placing bracelet pt told me that he would want CPR, defibrillation. He does not want to be on a ventilator only. This RN will TT physician on this account and hold on placing a DNR bracelet as pt is talking limited DNR.
--- NOTE | 2024-08-29 13:58 | EDRN ---
Troponin #2 drawn and sent at this time.
[2024-08-29 14:28] LABS: Troponin I 0.047 ng/ml
--- NOTE | 2024-08-29 15:12 | PTCARENOTE ---
pt admitted from ED awake and alert x3 no c/o pain. LCTA on RA. Heart sounds distant. NSR with BBB. abd round and full. + BSx4. No tenderness. cont b&B. skin CDI. weak pp b/l. No edema. Spouse at bedside. CB in reach. instructed on use.
[2024-08-29 15:22] LABS: HDL Cholesterol 58 mg/dl; LDL Cholesterol, Calculated 52 mg/dl; Total Cholesterol 166 mg/dl (50-199); Triglyceride 283 mg/dl (10-149); Very Low Density Lipoprotein 56 mg/dl (0-30)
[2024-08-29 16:28] LABS: Glucose - Point of Care 102 mg/dl (70-99)
[2024-08-29] MEDS: LOVENOX 40 MG SC (17:06)
[2024-08-29] MEDS: CRESTOR 40 MG PO (17:06)
[2024-08-29] MEDS: ZESTRIL 20 MG PO (19:41)
[2024-08-29] MEDS: TYLENOL 650 MG PO (19:49)
[2024-08-29 20:24] LABS: Troponin I 0.071 ng/ml
[2024-08-29 21:36] LABS: Glucose - Point of Care 103 mg/dl (70-99)
[2024-08-30] VITALS (7 sets, daily range): BP systolic 117–177; BP diastolic 60–89; PULSE 67–68; O2SAT 96; BMI 27.8
[2024-08-30 03:01] LABS: Troponin I 0.066 ng/ml
[2024-08-30] MEDS: ZESTRIL 20 MG PO ×2 (06:21→21:13)
[2024-08-30 06:23] LABS: Hematocrit 49.6 % (39.0-52.0); Hemoglobin 16.9 g/dL (13.0-18.0); Mean Corp Hgb Conc. 34.1 g/dL (33.0-37.0); Mean Corpuscular Hgb 29.8 pg (27.0-31.0); Mean Corpuscular Volume 87.5 fL (80.0-94.0); Mean Platelet Volume 9.5 fL (7.4-10.4); Platelet Count 189 10^3/uL (130-400); Red Blood Cell Count 5.67 10^6/uL (4.70-6.10)
[2024-08-30] MEDS: TYLENOL 650 MG PO ×2 (06:27→15:32)
[2024-08-30 06:57] LABS: ALT (SGPT) 24 U/L (0-50); AST (SGOT) 23 U/L (17-59); Albumin 3.6 g/dl (3.5-5.0); Alkaline Phosphatase 76 U/L (38-126); Blood Urea Nitrogen 19 mg/dl (9-20); Calcium 8.9 mg/dl (8.4-10.2); Carbon Dioxide 25 mmol/L (22-30); Chloride 101 mmol/L (98-107); Estimated Creatinine Clearance 79 ml/min; Glucose 177 mg/dl (70-99); Potassium 4.4 mmol/L (3.5-5.1); Sodium 136 mmol/L (135-145); Total Bilirubin 1.4 mg/dl (0.2-1.3); Total Protein 6.2 g/dl (6.3-8.2); eGFR > 60.00
[2024-08-30 07:44] LABS: Hepatitis C Antibody Negative (Negative)
[2024-08-30 07:46] LABS: Glucose - Point of Care 170 mg/dl (70-99)
--- NOTE | 2024-08-30 08:02 | W.PN.HOSP.TC ---
Addendum entered and electronically signed by Calin Mendoza MD 08/30/24 22:54:
Attending Addendum-
I saw and evaluated the patient. I reviewed the resident�s note and agree with findings and plan as documented in the resident�s note. Sub: Feel improved. Less SOB. Seen with present. Denies CP palps cough. Full 12 point ROS reviewed and
negative except as documented Exam: Vitals reviewed in chart GEN-NAD lungs CTA B/L heart RRR no M/R/G abd soft NT obese LE no edema
Plan:
# Acute on Chronic HFmrEF
- not on lasix at home
- responding well to IV lasix
- dropping weight with excellent urine O/P
- echo 08/30- Normal left ventricular size with mildly reduced systolic function. LVEF 40-45%.
The basal to apical inferolateral wall is thinned and akinetic, and there is
hypokinesis of the basal to mid inferior and inferoseptal adkins.
- OP stress/cath if desired
# NIMI
- trops trending down
- f/u as OP with cards
- Cardiology consulted, input appreciated OP f/u
- LBBB seen on ECG
- Continue Aspirin
#Hyperlipidemia
-Continue rosuvastatin
#GERD
-continue Protonix
#Hypertension
-Continue home medications of metoprolol, lisinopril and amlodipine
#NIDDM
-insulin sliding scale
-Accuchecks
-continue monitoring blood glucose
-hold glimepiride restart on DC
# PAD/CAD + stent
- s/p Aorto bifem bypass graft
- cont asa Crestor metoprolol
Code: Limited DNR
DVT Prophylaxis: Lovenox
Dispo DC in am
Time spent coordinating care, review of plan of care with resident, personally reviewed records in EMR, med rec, consults, notes, labs, radiology, d/w nursing and POA � 58 mins
Original Note:
Today's Communication/Plan
-
;/
Assessment / Plan
Assessment / Plan
Assessment/plan
#Shortness of breath
-S/p URI symptoms July 2024, was prescribed steroids.
-CXR: Small bilateral pleural effusions, No definite Colten B lines
-proBNP on presentation 3140
-Cardiology consulted, input appreciated
-Started on IV Lasix 40 mg twice daily by cardiology for concerns of CHF
-Echocardiogram LVEF 40 to 45%
#Elevated troponin level
#Nonischemic myocardial injury in the setting of increased work of breathing
-Denies any acute chest pain
-Echocardiogram LVEF 40-to 45%
-Cardiology following
#CAD s/p stent
-Continue ASA/statin/beta-blockers
#Essential hypertension
-Continue home regimen, lisinopril, metoprolol, amlodipine
#LBBB on EKG
-Was present on EKG in 2021
-Monitor on telemetry
#Hyperlipidemia
-Continue home statin
#T2DM
-A1c 6.9 08/29/2024
-Coverage with SSI
-Holding home glimepiride
CODE STATUS ; limited DNR
DVT prophylaxis; Lovenox
Anticipated Discharge: 24 - 48 hours
Subjective/Interval History
-
Patient seen at bedside. Denies complaints. Denies chest pain, denies shortness of breath
Objective Data
-
Labs:
Laboratory Results
08/30/24
06:11
WBC 11.0 H
Hgb 16.9
Hct 49.6
Plt Count 189
Sodium 136
Potassium 4.4
Chloride 101
Carbon Dioxide 25
BUN 19
Creatinine 0.9
Glucose 177 H
Calcium 8.9
Total Bilirubin 1.4 H
AST 23
ALT 24
Alkaline Phosphatase 76
Vital Signs:
Vital Signs
Temp Pulse Resp BP Pulse Ox
98.0 F 64 17 177/87 95
08/30/24 07:28 08/30/24 07:28 08/30/24 07:28 08/30/24 07:28 08/30/24 07:28
I&O
08/29/24 08/30/24 08/31/24
06:59 06:59 06:59
Intake Total 780 / 780
Balance 780 / 780
Review of Systems
-
All other systems: Reviewed and negative (Except as documented)
Physical Exam
-
General: Well Developed and Well Nourished
Respiratory: Clear to Auscultation
Cardiac: Regular Rhythm and S1/S2
GI: Soft, Nontender, Nondistended and Normal Bowel Sounds
Musculoskeletal: No Clubbing and No Edema
Neuro: Awake, Alert, Oriented and AO x 3
Psych: Calm
--- NOTE | 2024-08-30 08:12 | CON.CAR ---
Addendum entered and electronically signed by Ramone De Luna MD 08/30/24 10:02:
I saw and examined the patient.
The [employer]IAL [employer]PERATOR [employer]'s note was reviewed and I agree with the note.
Comment:
73 y/o male with ICM EF 40-45%, CAD with stenting ([facility] 2021: SHAWNA to LAD for ISR, RCA occluded, 40% mLCx), hypertension, dyslipidemia, DM2, obesity, PAD with hx LE bypass, carotid disease, who is here for evaluation of SOB. He previously was known
to Dr. Nunn and most recently saw Dr. Villegas in the office. He has been feeling short of breath for the past few weeks. Had a course of steroids from 08/23-08/28 but still did not feel better so presented to the ER. He denies chest pain. This
does not feel like his CAD in the past. On admission he was noted to have proBNP 3000, troponin 0.046 -> 0.071 -> 0.066. Chest CT showed small bilateral pleural effusions. ECG with sinus bradycardia and left bundle branch block (present in 2021).
On exam he is well-appearing, has a regular rate and rhythm with no murmurs, rubs, gallops. Lungs are clear to auscultation bilaterally and he has no lower extremity edema. Echocardiogram is pending. His dyspnea may be due to mild heart failure
exacerbation given his elevated NT proBNP and effusions on chest CT. We will trial IV Lasix 40 mg twice daily to see if he improves. I did offer stress testing to see if this is an anginal equivalent but he does not want to do a stress test as
these 'made him feel like he was going to in the past '. His troponin elevation is likely nonischemic myocardial injury due to mild heart failure exacerbation. We will follow-up an echocardiogram to see if there are any new wall motion
abnormalities.
Original Note:
Consultation
Consultation Request
Date/Time Consultation Requested: 08/29/24 0723
Date/Time Consultation Performed: 08/30/24 0810
Requesting Provider: Dr. Dee Coombs
Performing Provider: Ching FRENCH for Dr. De Luna
Reason for Consultation: Elevated troponin, abnormal EKG
Medical History
-
Chief Complaint: SOB
History of Present Illness:
73 y/o male with ICM EF 40-45%, hypertension, dyslipidemia, DM2, obesity, PAD with hx LE bypass, carotid disease, CAD with hx stenting - most recent 2021 LAD ISR- otherwise, occluded RCA, 40% mid circ who is here for evaluation of SOB. Briefly, he
had a 'bad cold' with cough and chills in early-mid July. He was placed on prednisone course by PCP. Over the past 2-3 weeks, he had had SOB and ELAM. Worse in cold. He does not monitor weight at home. Denies LE edema. He is admitted for further
management. Chest imaging shows small b/l pleural effusions, increased vascular cephalization, and atelectasis. BNP 3140. In this setting, troponin levels are minimally elevated (up to 0.071). He denies chest pain. His EKG shows LBBB. Previous EKG's
reviewed and this appears to be intermittent (seen in 2021 as well). He is in no distress at the time of my assessment.
Past Medical History
Past Medical History: CAD, HTN, Hypercholesterolemia, NIDDM and Other (PAD)
Social History
Tobacco: Non-Smoker
Family History
Family History: CAD (Dad)
Allergies / Home Medications
Allergy/AdvReac Type Severity Reaction Status Date / Time
adhesive tape Allergy Rash Verified 12/08/23 15:29
latex Allergy Rash Verified 12/08/23 15:29
�Medication �Instructions �Recorded �Confirmed �Type
aspirin 81 mg tablet,delayed 81 mg PO DAILY Blood clot 11/18/15 08/29/24 History
release prevention/tx
rosuvastatin 40 mg tablet (Crestor) 40 mg PO QPM High cholesterol 11/18/15 08/29/24 History
lisinopril 20 mg tablet 20 mg PO BID Blood pressure 06/08/21 08/29/24 History
acetaminophen 325 mg tablet 650 mg PO DAILYPRN PRN mild pain 08/29/24 08/29/24 History
amlodipine 10 mg tablet 10 mg PO DAILY 08/29/24 08/29/24 History
coQ10 (ubiquinol) 100 mg capsule 100 mg PO DAILY 08/29/24 08/29/24 History
(Qunol Roby CoQ10)
docusate sodium 250 mg capsule 250 mg PO DAILYPRN PRN constipation 08/29/24 08/29/24 History
glimepiride 4 mg tablet 4 mg PO BID 08/29/24 08/29/24 History
metoprolol succinate 100 mg 100 mg PO DAILY 08/29/24 08/29/24 History
tablet,extended release 24 hr
omeprazole 40 mg capsule,delayed 40 mg PO DAILY 08/29/24 08/29/24 History
release
Review of Systems
-
History Source: Patient
All other systems: Negative unless noted
Respiratory: Trouble Breathing
Physical Exam
Vital Signs
Temp Pulse Resp BP Pulse Ox
98.0 F 64 17 177/87 95
08/30/24 07:28 08/30/24 07:28 08/30/24 07:28 08/30/24 07:28 08/30/24 07:28
Lab Results
08/30/24 06:11
08/30/24 06:11
Troponin I 0.066 ng/ml H* 08/30/24 02:13
Gaw-X-Lvthqzbaswe Pept 3140 pg/ml 08/29/24 10:58
Physical Exam
General: Well Developed, Well Nourished and No Apparent Distress
HEENT: Normocephalic and Anicteric
Respiratory: Clear and Non Labored Respirations
Cardiac: Regular Rhythm
GI: Distended (softly)
Musculoskeletal: No Edema
Skin: Warm and Dry
Neuro: AO x 3
Psych: Calm
Impression / Plan
-
SOB:
-suspect there is a component of mild acute HFmEF
-Chest imaging shows small b/l pleural effusions, increased vascular cephalization, and atelectasis. BNP 3140.
-IV lasix, which requires intensive monitoring
-he was recently on steroid course. He does not take diuretic as OP
-update echo
Abnormal troponin:
-suspect acute non-ischemic myocardial injury in setting of CHF
-he has no CP
-check echo
CAD with hx stenting:
-most recent cath as below
-no CP
-continue ASA, statin, and BB
HTN:
-elevated here, but patient monitors at home and reports it is around 130/60's-70's at home
-continue lisinopril, metoprolol, amlodipine. Per OP notes, intolerant to nebivolol, labetalol, HCTZ, spironolactone, hydralazine.
LBBB:
-intermittent
PAD: ASA, statin
HLD: statin
DM2: on medical therapy, monitor sugars
Data:
Cath 06/07/22: LAD: 60-70% stenosis within and just distal to a stent placed in 1998. Circumflex: Long 40% mid circumflex stenosis. The small ramus intermedius has significant proximal disease-this is a 1.0 mm vessel. The large OM 3 has 40% ostial
stenosis. RCA: The RCA is proximally occluded. The small distal PDA fills via [id number] collaterals; RCA is unchanged compared with the prior study from 2000. The LAD disease was flow-limiting and SHAWNA placed to mid LAD.
Echo 10/31/22: Moderately reduced left ventricular systolic function with akinesis and adjacent hypokinesis of the basal inferior and lateral segments. Estimated left ventricular ejection fraction is 40-45%. Aortic sclerosis without stenosis. No
significant functional valvular disease.
Data Reviewed
-
EKG: Tracing Personally Visualized and interpreted (SB with LBBB)
Radiology: Report Reviewed by me ( CXR: Small bilateral pleural effusions. Cephalization of vascular markings, suggesting elevated pulmonary venous pressures.)
CT Scan: Report Reviewed by me (Small bilateral pleural effusions. No pulmonary embolus. Mild bibasilar atelectasis versus scarring.)
Medical Tests (Nuc Med, Echo etc): Report Reviewed by me ( Echo and cath results as noted below)
Labs: Labs Reviewed by me
[2024-08-30 08:49] LABS: Glycohemoglobin (HgbA1c) 6.9 % (4.0-5.6)
[2024-08-30] MEDS: PROTONIX 40 MG PO (09:01)
[2024-08-30] MEDS: TOPROL XL 100 MG PO (09:01)
[2024-08-30] MEDS: ASPIR LOW (ENTERIC COATED) 81 MG PO (09:01)
[2024-08-30] MEDS: NORVASC 10 MG PO (09:02)
--- NOTE | 2024-08-30 10:34 | PTOTSP ---
Patient independent with bed mobility, transfers, ambulation and stair climbing. No skilled PT needs, will sign off.
[2024-08-30] MEDS: LASIX 40 MG IV ×2 (10:43→15:31)
[2024-08-30 11:30] LABS: Glucose - Point of Care 126 mg/dl (70-99)
[2024-08-30 16:40] LABS: Glucose - Point of Care 126 mg/dl (70-99)
[2024-08-30] MEDS: CRESTOR 40 MG PO (17:16)
[2024-08-30] MEDS: LOVENOX 40 MG SC (17:16)
[2024-08-30 21:25] LABS: Glucose - Point of Care 133 mg/dl (70-99)
[2024-08-31 03:00] VITALS: BP 125/60
[2024-08-31 06:00] VITALS: BMI 27.5
[2024-08-31 07:05] VITALS: BP 156/74
[2024-08-31 07:08] LABS: Hematocrit 48.7 % (39.0-52.0); Hemoglobin 16.6 g/dL (13.0-18.0); Mean Corp Hgb Conc. 34.1 g/dL (33.0-37.0); Mean Corpuscular Hgb 29.4 pg (27.0-31.0); Mean Corpuscular Volume 86.2 fL (80.0-94.0); Mean Platelet Volume 9.1 fL (7.4-10.4); Platelet Count 188 10^3/uL (130-400); Red Blood Cell Count 5.65 10^6/uL (4.70-6.10); Red Cell Dist. Width 13.7 % (11.5-14.5); White Blood Cell Count 9.8 10^3/uL (4.8-10.8)
--- NOTE | 2024-08-31 07:45 | W.PN.HOSP.TC ---
Addendum entered and electronically signed by Calin Mendoza MD 09/01/24 00:14:
Attending Addendum-
I saw and evaluated the patient. I reviewed the resident�s note and agree with findings and plan as documented in the resident�s note. Sub: Feels greatly improved. Less SOB. Seen with present. Compains of PND but doesnt want to try any meds.
Denies CP palps cough. Full 12 point ROS reviewed and negative except as documented Exam: Vitals reviewed in chart GEN-NAD lungs CTA B/L heart RRR no M/R/G abd soft NT obese LE no edema
Plan:
# Acute on Chronic HFmrEF
- not on lasix at home- refusing to take on DC
- responded well to IV lasix
- droped weight with excellent urine O/P 8kgs!
- echo 08/30- Normal left ventricular size with mildly reduced systolic function. LVEF 40-45%.
The basal to apical inferolateral wall is thinned and akinetic, and there is
hypokinesis of the basal to mid inferior and inferoseptal adkins.
- OP stress/cath if desired (refusing stress while IP)
# NIMI
- trops trended down
- f/u as OP with cards
- Cardiology consulted, input appreciated OP f/u
- LBBB seen on ECG
- Continue Aspirin
#Hyperlipidemia
-Continue rosuvastatin
#GERD
-continue Protonix
#Hypertension
-Continue home medications of metoprolol, lisinopril and amlodipine
#NIDDM
-insulin sliding scale
-Accuchecks
-continue monitoring blood glucose
-hold glimepiride restart on DC
# PAD/CAD + stent
- s/p Aorto bifem bypass graft
- cont asa Crestor metoprolol
Code: Limited DNR
DVT Prophylaxis: Lovenox
Dispo DC home d/w cards
Time spent coordinating care, DC planning, review of DC plan of care with resident, transition of care, review of records, med rec/scripts sent electronically, consults, notes, d/w consultants/cards, nursing, family/, and CM� 34 mins
Original Note:
Today's Communication/Plan
-
;/
Assessment / Plan
Assessment / Plan
Assessment/plan
#Shortness of breath
-S/p URI symptoms July 2024, was prescribed steroids.
-CXR: Small bilateral pleural effusions, No definite Colten B lines
-proBNP on presentation 3140
-Cardiology consulted, input appreciated
-Started on IV Lasix 40 mg twice daily trial by cardiology for concerns of CHF.
-Patient declined to be on any standing diuretics on d/c
-Weight is down 1kg.
-Echocardiogram LVEF 40 to 45%.The basal to apical inferolateral wall is thinned and akinetic, and there is
hypokinesis of the basal to mid inferior and inferoseptal adkins.
-Follow-up outpatient cardiology for further workup including stress/cath
-Follow-up with Pulm as an outpatient for eval.
#Elevated troponin level
#Nonischemic myocardial injury in the setting of increased work of breathing
-Denies any acute chest pain
-Echocardiogram LVEF 40-to 45%
-Cardiology following
#CAD s/p stent
-Continue ASA/statin/beta-blockers
#Essential hypertension
-Continue home regimen, lisinopril, metoprolol, amlodipine
#LBBB on EKG
-Was present on EKG in 2021
-Monitor on telemetry
#Hyperlipidemia
-Continue home statin
#T2DM
-A1c 6.9 08/29/2024
-Coverage with SSI
-Holding home glimepiride
CODE STATUS ; limited DNR
DVT prophylaxis; Lovenox
Anticipated Discharge: Today
Subjective/Interval History
-
Patient seen at bedside. Reports shortness of breath has improved. He denies acute chest pain, palpitations
Objective Data
-
Labs:
Laboratory Results
08/31/24
06:46
WBC 9.8
Hgb 16.6
Hct 48.7
Plt Count 188
Sodium Pending
Potassium Pending
Chloride Pending
Carbon Dioxide Pending
BUN Pending
Creatinine Pending
Glucose Pending
Calcium Pending
Total Bilirubin Pending
AST Pending
ALT Pending
Alkaline Phosphatase Pending
Vital Signs:
Vital Signs
Temp Pulse Resp BP Pulse Ox
97.6 F 59 18 156/74 97
08/31/24 07:05 08/31/24 07:05 08/31/24 07:05 08/31/24 07:05 08/31/24 07:05
I&O
08/30/24 08/31/24 09/01/24
06:59 06:59 06:59
Intake Total 780 / 780 960 / 1440 480 / 480
Balance 780 / 780 960 / 1440 480 / 480
Review of Systems
-
All other systems: Reviewed and negative (Except as documented)
Physical Exam
-
General: Well Developed, Well Nourished and No Apparent Distress
Respiratory: Clear to Auscultation
Cardiac: Regular Rhythm and S1/S2
GI: Soft, Nontender, Nondistended and Normal Bowel Sounds
Musculoskeletal: No Edema
Neuro: Awake, Alert, Oriented and AO x 3
Psych: Calm
[2024-08-31 07:49] LABS: Glucose - Point of Care 139 mg/dl (70-99)
[2024-08-31] MEDS: TOPROL XL 100 MG PO (07:53)
[2024-08-31] MEDS: PROTONIX 40 MG PO (07:53)
[2024-08-31] MEDS: ASPIR LOW (ENTERIC COATED) 81 MG PO (07:53)
[2024-08-31] MEDS: NORVASC 10 MG PO (07:53)
[2024-08-31] MEDS: ZESTRIL 20 MG PO (07:53)
[2024-08-31] MEDS: LASIX 40 MG IV ×2 (07:54→16:21)
[2024-08-31 08:15] LABS: ALT (SGPT) 18 U/L (0-50); AST (SGOT) 20 U/L (17-59); Albumin 3.4 g/dl (3.5-5.0); Alkaline Phosphatase 63 U/L (38-126); Blood Urea Nitrogen 23 mg/dl (9-20); Calcium 8.5 mg/dl (8.4-10.2); Carbon Dioxide 29 mmol/L (22-30); Chloride 99 mmol/L (98-107); Estimated Creatinine Clearance 65 ml/min; Glucose 174 mg/dl (70-99); Potassium 4.2 mmol/L (3.5-5.1); Sodium 136 mmol/L (135-145); Total Bilirubin 1.3 mg/dl (0.2-1.3); Total Protein 5.9 g/dl (6.3-8.2); eGFR > 60.00
[2024-08-31 11:05] VITALS: BP 127/64
[2024-08-31 11:37] LABS: Glucose - Point of Care 143 mg/dl (70-99)
--- NOTE | 2024-08-31 14:29 | W.PN.CD ---
Today's Communication / Plan
-
Plan for outpatient stress testing
Patient does not wish to make any medication changes prior to discharge
Impression / Plan
-
73 y/o male with ICM EF 40-45%, CAD with stenting ([facility] 2021: SHAWNA to LAD for ISR, RCA occluded, 40% mLCx), hypertension, dyslipidemia, DM2, obesity, PAD with hx LE bypass, carotid disease, who is here for evaluation of SOB.
Mortgage Closer: Dr. Villegas
Shortness of breath
-Etiology remains unclear. There may be a component of heart failure given his elevated NT proBNP and small bilateral effusions on chest x-ray, but he does not feel vastly improved with Lasix. There is also likely some component of reactive airway
disease given it seems to be worse in cold weather.
-He does not want to be on any standing diuretics because he 'already pees enough'
-He is now agreeable to an outpatient Lexiscan stress test to rule out ischemia
-I offered trial of a long-acting nitrate to empirically treat if this is an anginal equivalent but he does not wish to make any medication changes at this time
-Recommend pulmonary evaluation as an outpatient
-We will set him up for an outpatient stress test
Ischemic cardiomyopathy (LVEF 40-45%)
-He is currently on a beta-lacy and an EDNA inhibitor. I did raise the idea of Entresto but he does not want to make any medication changes at this time
-He has been intolerant to spironolactone in the past.
-Consideration of SGLT2 inhibitor as an outpatient
-Continue aspirin 81 mg and rosuvastatin 40 mg. LDL 52 this admission.
Abnormal troponin:
-Peak of 0.071
-suspect acute non-ischemic myocardial injury in setting of CHF
-he has no CP
HTN:
-continue lisinopril, metoprolol, amlodipine. Per OP notes, intolerant to nebivolol, labetalol, HCTZ, spironolactone, hydralazine.
LBBB:
-intermittent
PAD: ASA, statin
HLD: statin
DM2: on medical therapy, monitor sugars
Data:
Cath 06/07/22: LAD: 60-70% stenosis within and just distal to a stent placed in 1998. Circumflex: Long 40% mid circumflex stenosis. The small ramus intermedius has significant proximal disease-this is a 1.0 mm vessel. The large OM 3 has 40% ostial
stenosis. RCA: The RCA is proximally occluded. The small distal PDA fills via uyto-ch-elhkm collaterals; RCA is unchanged compared with the prior study from 2000. The LAD disease was flow-limiting and SHAWNA placed to mid LAD.
Echo 10/31/22: Moderately reduced left ventricular systolic function with akinesis and adjacent hypokinesis of the basal inferior and lateral segments. Estimated left ventricular ejection fraction is 40-45%. Aortic sclerosis without stenosis. No
significant functional valvular disease.
Subjective: Patient feels about the same as yesterday. He is now agreeable to outpatient stress test. Telemetry reveals normal sinus rhythm. Yesterday he was given 40 mg IV Lasix twice daily. Weight is 91.8 kg from 92.8 kg. Creatinine is stable.
Physical Exam
Vital Signs/Labs
Vital Signs
Temp Pulse Resp BP Pulse Ox
97.7 F 56 19 127/64 98
08/31/24 11:05 08/31/24 11:05 08/31/24 11:05 08/31/24 11:05 08/31/24 11:05
08/30/24 08/31/24 09/01/24
06:59 06:59 06:59
Actual Weight 92.85 kg 91.898 kg
08/31/24 06:46
08/31/24 06:46
Triglycerides Cancelled 08/29/24 14:27
LDL Cholesterol, Calc Cancelled 08/29/24 14:27
VLDL Cholesterol, Calc Cancelled 08/29/24 14:27
HDL Cholesterol Cancelled 08/29/24 14:27
TSH 2.07 uIU/ml (0.47-4.68) 08/29/24 10:58
08/29/24
10:58
Fap-X-Yqwuxmrvtjf Pept 3140
LAB Results
08/29/24 08/29/24 08/29/24
10:58 13:56 17:18
Troponin I 0.046 H* 0.047 H* 0.060 H* D
08/29/24 08/30/24
19:51 02:13
Troponin I 0.071 H* 0.066 H*
Physical Exam
Constitutional: No acute distress and Comfortable
Cardiovascular: Rhythm & rate is regular, Pedal edema is absent, S1S2 is normal and Murmur/rub/gallop absent
Respiratory: Respiratory effort normal and Lungs clear to auscul.
Neuro/Psych: AO x 3
Data Reviewed
-
Date of Service: August 31, 2024
Medical Decision Making: Reviewed Test Results, Independent Historian Assessment, Test Interpretation and Review of Case with other Provider
EKG: Tracing Personally Visualized and interpreted
Echo: Tracing Personally Visualized and interpreted
Labs: Labs Reviewed by me
Old Records: Reviewed
[2024-08-31 15:04] VITALS: BP 152/75
[2024-08-31 16:37] LABS: Glucose - Point of Care 128 mg/dl (70-99)
--- NOTE | 2024-08-31 16:45 | CM ---
Met with patient to obtain information for assessment. Patient's was at bedside. Patient stated that he lives with his in a multi-story duplex with 4 steps to enter. He described himself as independent with his ADLs and personal care. He
can do manager behavior, cook, clean and do laundry. Patient drives and can get to all of his appointments and do all of his shopping.
Patient has no DME
He has never had VN
He has not been to a SNF.
Patient has a prescription plan and uses, [facility] in [place] for all of his medications.
His PCP is, Alona Campos
Patient has discharge order in. transporting home. Reviewed IMM and he signed. Now on chart.
Plan: Case management will continue to follow and assist with discharge planning. Home.
--- NOTE | 2024-08-31 18:30 | W.DCSUMMARY ---
Addendum entered and electronically signed by Calin Mendoza MD 09/01/24 00:16:
Read, reviewed, and agree. See same day progress note for additional details. D/W cardiology ok for DC home with f/u set up. patient refusing Lasix on DC or other med changes. Is amenable to Lexiscan stress as OP.
Mando Mendoza MD
Original Note:
Documented by User: Sean Winkler MD, Resident 08/31/24 18:36
Discharge Summary
Discharge Data
Date of Admission: 08/29/24
Date of Discharge: 08/31/24
-
Pending Results: No
Hospital Course
Brief hospital course; This is a 73-year-old male with past medical history of hypertension, dyslipidemia, T2DM, PAD with history of LE bypass, coronary disease,CAD with stenting ([facility] 2021: SHAWNA to LAD for ISR, RCA occluded, 40% mLCx) who presents to
ER 08/29/2024 complaining of shortness of breath. Patient reports prior to he had symptoms of upper respiratory illness including fever, chills, cough and shortness of breath. Shortness of breath continued to linger and she
decided to get evaluated by his PCP. His PCP started him on a course of steroids from 08/23 - 08/28 patient reports he did not feel better. He reports that shortness of breath continued despite completing the steroid course as he decided to come to
the ER for evaluation. On presentation to the ED, patient's blood pressure was 174/79, pulse 62, respiratory to 18, O2 sat 92% on room air. Evaluation with a chest x-ray showed small bilateral pleural effusions. Further evaluation with a CT chest
showed no pulmonary embolus. proBNP on presentation was 3140. Troponin was elevated at 0.046. ECG with sinus bradycardia and left bundle branch block (present in 2021). Cardiology was consulted to evaluate patient. Per cardiology
recommendation, he was given a trial of 40 mg IV Lasix. after administration of Lasix, his weight dropped the next day by 1 kg. Echocardiogram was ordered which showed LVEF 40-45% with no new wall motion abnormalities unchanged from his prior
echo in 2022. During the course of hospital stay, patient reports his shortness of breath improved. He did not require oxygen throughout the course of his hospital stay. Per cardiology, his etiology remained unclear. There may have been a
component of heart failure given his elevated proBNP as per bilateral effusions on chest but patient reports he did not feel improved on Lasix. He declined to be on standing diuretics on discharge. Recommendation at the time of discharge was for
an outpatient Lexiscan stress test to rule out ischemia. In addition, he was offered a trial of long-acting nitrates to empirically treat if this was not an anginal equivalent but patient declined. He will be followed outpatient by cardiology for
an outpatient stress test.
On the day of discharge, patient was awake, alert. S1-S2 present. Lungs were clear to auscultation bilaterally. Abdomen was soft, nontender, nondistended. Extremities show no peripheral edema.
Discharge Plan
-
Patient Disposition: Home (Routine Discharge)
Discharge Diagnosis/Procedures: Shortness of breath
Abnormal troponin level
Essential hypertension
Hyperlipidemia
Condition: Fair
Diet: As tolerated
Activity: No restrictions
Driving Restrictions: As prior to admission
Referrals:
Alona Campos MD [Family Provider] - in less than 1 week
Prescriptions:
Continued
aspirin 81 MG tablet,delayed release (DR/EC)
81 mg PO DAILY
rosuvastatin [Crestor] 40 MG tablet
40 mg PO QPM
lisinopril 20 MG tablet
20 mg PO BID
acetaminophen 325 mg Tablet
650 mg PO DAILYPRN PRN (Reason: mild pain)
metoprolol succinate 100 mg Tablet Extended Release 24 Hr
100 mg PO DAILY
omeprazole 40 mg Capsule,Delayed Release(Dr/Ec)
40 mg PO DAILY
amlodipine 10 mg Tablet
10 mg PO DAILY
glimepiride 4 mg Tablet
4 mg PO BID
docusate sodium 250 mg Capsule
250 mg PO DAILYPRN PRN (Reason: constipation)
coQ10 (ubiquinol) [Qunol Roby CoQ10] 100 mg Capsule
100 mg PO DAILY
Discharge Orders:
Discharge Patient (As Directed); Ordered 08/31/24
Ordered By: Sean Winkler
Discharge Date and Time
Discharge Date/Time: 08/31/24 17:05
Print Language: FAROESE

Documented by User: Calin Mendoza MD 09/01/24 00:10
Discharge Summary
Discharge Data
Date of Admission: 08/29/24
Date of Discharge: 09/01/24
Discharge Plan
-
Patient Disposition: Home (Routine Discharge)
Discharge Diagnosis/Procedures: Shortness of breath
Abnormal troponin level
Essential hypertension
Hyperlipidemia
Condition: Fair
Diet: As tolerated
Activity: No restrictions
Driving Restrictions: As prior to admission
Referrals:
Alona Campos MD [Family Provider] - in less than 1 week
Prescriptions:
Continued
aspirin 81 MG tablet,delayed release (DR/EC)
81 mg PO DAILY
rosuvastatin [Crestor] 40 MG tablet
40 mg PO QPM
lisinopril 20 MG tablet
20 mg PO BID
acetaminophen 325 mg Tablet
650 mg PO DAILYPRN PRN (Reason: mild pain)
metoprolol succinate 100 mg Tablet Extended Release 24 Hr
100 mg PO DAILY
omeprazole 40 mg Capsule,Delayed Release(Dr/Ec)
40 mg PO DAILY
amlodipine 10 mg Tablet
10 mg PO DAILY
glimepiride 4 mg Tablet
4 mg PO BID
docusate sodium 250 mg Capsule
250 mg PO DAILYPRN PRN (Reason: constipation)
coQ10 (ubiquinol) [Qunol Roby CoQ10] 100 mg Capsule
100 mg PO DAILY
Discharge Orders:
Discharge Patient (As Directed); Ordered 08/31/24
Ordered By: Sean iWnkler
Discharge Date and Time
Discharge Date/Time: 08/31/24 17:05
Print Language: FAROESE
== END 2024-08-31 17:05 | disposition home or self-care (01) | DRG 291 ==
LOC: 3 WEST ACU 12:46
PROVIDERS: Nurse Practitioner Family; Physician Assistant Medical; Student in an Organized Health Care Education/Training Program; ADMITTING PHYSICIAN Internal Medicine; ATTENDING PHYSICIAN Family Medicine; EMERGENCY PHYSICIAN Student in an Organized Health Care Education/Training Program; FAMILY PHYSICIAN Family Medicine; OTHER PHYSICIAN Student in an Organized Health Care Education/Training Program
DX: I11.0 Hypertensive heart disease with heart failure (principal); I50.23 Acute on chronic systolic (congestive) heart failure; J98.11 Atelectasis; Z87.891 Personal history of nicotine dependence; I5A Non-ischemic myocardial injury (non-traumatic); I50.9 Heart failure, unspecified; E78.00 Pure hypercholesterolemia, unspecified; E11.9 Type 2 diabetes mellitus without complications; Z79.82 Long term (current) use of aspirin; K21.9 Gastro-esophageal reflux disease without esophagitis; Z66 Do not resuscitate
CPT/HCPCS: 71046; 71275; 80053; 80061; 82962; 83036; 83880; 84443; 84484; 85025; 85027; 86803; 93005; 93306; 97161; 97165; 99285; Q9967

== ENCOUNTER → 2024-09-17 07:24 | Outpatient (REF) | payer MEDICARE, OTHER, SELFPAY | LOC: HWRCS 07:24 | PROVIDERS: ATTENDING PHYSICIAN Student in an Organized Health Care Education/Training Program; FAMILY PHYSICIAN Family Medicine | DX: R06.02 Shortness of breath (principal); I25.5 Ischemic cardiomyopathy; I10 Essential (primary) hypertension; I44.7 Left bundle-branch block, unspecified; I73.9 Peripheral vascular disease, unspecified; E78.2 Mixed hyperlipidemia | CPT/HCPCS: 78452; 93017; A9500; J2785 ==

== ENCOUNTER → 2024-10-14 09:58 | Outpatient (REF) | payer MEDICARE, OTHER, SELFPAY | LOC: HWRAD 09:58 | PROVIDERS: ATTENDING PHYSICIAN Family Medicine; REFERRING PHYSICIAN Specialist | DX: R31.0 Gross hematuria (principal) | CPT/HCPCS: 74176 ==

== ENCOUNTER 2024-11-24 06:21 | Day surgery (SDC) | payer MEDICARE, OTHER, SELFPAY ==
--- NOTE | 2024-11-18 14:21 | PTCARENOTE ---
Patients 08/2024 ECG abnormal- reviwed by Dr. Bell- no additional interventions required
[2024-11-24] VITALS (20 sets, daily range): BP systolic 82–190; BP diastolic 45–95; BMI 27.8
[2024-11-24] MEDS: NORMOSOL-R/PLASMALYTE-A 1000 IV ×2 (11:07→20:28)
[2024-11-24] MEDS: CYSVIEW KIT 100 MG INTRAVES (11:23)
[2024-11-24 11:26] LABS: Glucose - Point of Care 170 mg/dl (70-99)
[2024-11-24 13:24] LABS: Glucose - Point of Care 143 mg/dl (70-99)
[2024-11-24 14:32] LABS: Glucose - Point of Care 146 mg/dl (70-99)
[2024-11-24] MEDS: SYRINGE NON-PUMP 50 MG IRRIG ×2 (14:34→14:35)
[2024-11-24] MEDS: SYRINGE NON-PUMP 50 ML IRRIG ×2 (14:34→14:35)
[2024-11-24] MEDS: SUBLIMAZE 50 MCG IV ×2 (14:51→15:31)
[2024-11-24] MEDS: Pyridium 200 MG PO (15:56)
[2024-11-24] MEDS: ZOFRAN 4 MG IV (16:23)
[2024-11-24] MEDS: VALIUM INJECTION 5 MG IV (17:23)
[2024-11-24] MEDS: TORADOL 15 MG IV (18:51)
[2024-11-24] MEDS: MORPHINE SULFATE 1 MG IV (19:08)
--- NOTE | 2024-11-24 19:44 | PTCARENOTE ---
Transferred back to PACU, given report to Nadia Umana RN. Pt AAOx3, belongings with pt.
[2024-11-24 20:16] LABS: Hematocrit 49.4 % (39.0-52.0); Hemoglobin 16.5 g/dL (13.0-18.0); Mean Corp Hgb Conc. 33.4 g/dL (33.0-37.0); Mean Corpuscular Hgb 29.2 pg (27.0-31.0); Mean Corpuscular Volume 87.4 fL (80.0-94.0); Mean Platelet Volume 9.2 fL (7.4-10.4); Platelet Count 196 10^3/uL (130-400); Red Blood Cell Count 5.65 10^6/uL (4.70-6.10); Red Cell Dist. Width 13.7 % (11.5-14.5)
--- NOTE | 2024-11-24 20:27 | PTCARENOTE ---
PT moved from SDS to PACU, PT to be admitted, spoke with DR Contreras, received order for admit, IV fluids and stat CBC/BMP, PT states he is more comfortable now that his pain is better, VSS, PT in no acute distress
[2024-11-24 20:49] LABS: Glucose - Point of Care 186 mg/dl (70-99)
[2024-11-24 21:08] LABS: Blood Urea Nitrogen 23 mg/dl (9-20); Calcium 8.9 mg/dl (8.4-10.2); Carbon Dioxide 19 mmol/L (22-30); Chloride 102 mmol/L (98-107); Estimated Creatinine Clearance 50 ml/min; Glucose 210 mg/dl (70-99); Potassium 4.8 mmol/L (3.5-5.1); Sodium 133 mmol/L (135-145); eGFR 52.41
--- NOTE | 2024-11-24 21:08 | W.PN.URO.CBU ---
Today's Communication / Plan
-
hand irrgate knox prn clots
Assessment / Plan
-
non tessa=xic no eveidebce clinical bladder injury will admit observe ivf placed knox serial labs
Diagnosis
-
Date of Service: November 24, 2024
-
Patient Diagnosis:post op pain
Post Op Day:
Subjective
-
severe lower abd pain post op turbt no fever chills nausea no abd distension voiding okrequested admit
Objective
-
Vital Signs
Temp Pulse Resp BP Pulse Ox
97.1 F 70 12 144/87 96
11/24/24 20:00 11/24/24 19:01 11/24/24 19:01 11/24/24 20:00 11/24/24 21:05
Laboratory Results
11/24/24 20:08
Review of Systems
-
Abdomen/GI: Abdominal Pain
: Difficulty Voiding and Bleeding
Physical Exam
-
General - well developed, well nourished, no acute distress
Chest - clear bilaterally
Abdomen - soft, non-tender, positive bowel sounds, no CVAT, no incisional pain or distention
Genitalia - normal
Rectal - normal
Skin - warm & dry with no rash
Neuro - AOx3, no motor deficits
Extremities - no clubbing, no cyanosis, no edema
Incision - clean, dry
Dressing - clean, dry, intact
Care Review
Data Reviewed
Discussed with: Nursing
[2024-11-24] MEDS: DETROL LA 4 MG PO (22:40)
[2024-11-24] MEDS: AMARYL 4 MG PO (22:40)
[2024-11-24] MEDS: LR 1000 IV (22:41)
[2024-11-24 22:43] LABS: Glucose - Point of Care 182 mg/dl (70-99)
--- NOTE | 2024-11-25 00:36 | TRANSFER ---
Receive report from OUTSIDE LABORER Nadia - pt arrived to floor via stretcher and was able to move himself by sliding over into the bed. Dx Blue light TURBT - no CBI ordered - confirmed w Dr. Contreras. 18fr catheter w bloody urine, somewhat orange, and some
blood clots noted. Pt requested lunch box, resting comfortably in bed at this time. VSS, call dudley within reach.
[2024-11-25 00:40] VITALS: BP 137/67
[2024-11-25 03:20] VITALS: BP 134/70
[2024-11-25 07:13] VITALS: BP 120/61
[2024-11-25 07:18] LABS: Hematocrit 43.4 % (39.0-52.0); Hemoglobin 14.6 g/dL (13.0-18.0)
[2024-11-25 07:34] LABS: Glucose - Point of Care 68 mg/dl (70-99)
[2024-11-25 07:56] LABS: Glucose - Point of Care 85 mg/dl (70-99)
[2024-11-25 08:02] LABS: ALT (SGPT) 19 U/L (0-50); AST (SGOT) 24 U/L (17-59); Albumin 3.2 g/dl (3.5-5.0); Alkaline Phosphatase 59 U/L (38-126); Blood Urea Nitrogen 26 mg/dl (9-20); Calcium 8.4 mg/dl (8.4-10.2); Carbon Dioxide 24 mmol/L (22-30); Chloride 103 mmol/L (98-107); Estimated Creatinine Clearance 54 ml/min; Glucose 43 mg/dl (70-99); Potassium 3.9 mmol/L (3.5-5.1); Sodium 136 mmol/L (135-145); Total Bilirubin 1.2 mg/dl (0.2-1.3); Total Protein 5.4 g/dl (6.3-8.2); eGFR 57.29
--- NOTE | 2024-11-25 09:29 | W.PN.URO.CBU ---
Today's Communication / Plan
-
discharge
Assessment / Plan
-
resolved post-op pain
Diagnosis
-
Date of Service: November 25, 2024
-
Patient Diagnosis: bladder cancer s/p TURBT
Post Op Day: 1
Subjective
-
'my bladder doesn't hurt now'
feels fit for discharge
Objective
-
Vital Signs
Temp Pulse Resp BP Pulse Ox
97.9 F 73 16 120/61 95
11/25/24 07:13 11/25/24 07:13 11/25/24 07:13 11/25/24 07:13 11/25/24 07:13
Intake and Output
11/24/24 11/25/24 11/26/24
06:59 06:59 06:59
Intake Total 800 / 800
Output Total 550 / 550
Balance 250 / 250
Intake:
IV fluids (Total) 800 / 800
Output:
Urine, Zuniga 550 / 550
Laboratory Results
11/25/24 05:53
11/25/24 05:53
Physical Exam
-
General - well developed, well nourished, no acute distress
Abdomen - soft, non-tender, positive bowel sounds, no distention
Genitalia - Zuniga with yellow urine
[2024-11-25] MEDS: LEVAQUIN 500 MG PO (09:57)
[2024-11-25] MEDS: PROTONIX 40 MG PO (09:58)
[2024-11-25] MEDS: TYLENOL 650 MG PO (09:58)
[2024-11-25] MEDS: ZESTRIL 20 MG PO (09:58)
[2024-11-25] MEDS: COLACE 100 MG PO (09:58)
[2024-11-25] MEDS: AMARYL 4 MG PO (09:58)
--- NOTE | 2024-11-25 09:58 | CM ---
CM met with patient in room. Patient confirmed demographics. Patient lives independently with . Patient does not have a history of VN, SNF or DME. Patient is active with his PCP. patent uses [facility] for medication services.
CM discussed home care options. Patient is agreeable to VN. Referral sent to VN Admission RN.
PLAN: home with [facility]
[2024-11-25] MEDS: NORVASC 10 MG PO (09:59)
--- NOTE | 2024-11-25 10:45 | VNURNOTE ---
Home Health Liaison spoke with patient at bedside to discuss VN nurse/therapy, visits, schedule and homebound status. Patient is agreeable and understands that visits at home will be 2-3 x per week to assess and teach medical management. [facility] 1-2 days after discharge from . [facility] in [facility].
[2024-11-25 11:02] VITALS: BP 137/58
[2024-11-25 12:24] LABS: Glucose - Point of Care 146 mg/dl (70-99)
[2024-11-25] MEDS: LR IV (13:47)
[2024-11-25] MEDS: COLACE PO (13:48)
== END 2024-11-25 14:38 | disposition home or self-care (01) ==
LOC: SDS 06:21
PROVIDERS: Specialist; ATTENDING PHYSICIAN Specialist
DX: C67.9 Malignant neoplasm of bladder, unspecified (principal)
CPT/HCPCS: 52235; 51720; C9738; 88307; 80048; 80053; 82962; 85014; 85018; 85027; A9589

== ENCOUNTER 2024-11-25 20:28 | Emergency (ER) | payer MEDICARE, OTHER, SELFPAY ==
[2024-11-25 20:29] VITALS: BP 155/72
[2024-11-25 21:00] LABS: Urine Albumin 4+ (Neg - Trace); Urine Bilirubin Negative (Negative); Urine Character Slightly Cloudy (Clear); Urine Color Amber; Urine Glucose Negative (Negative); Urine Ketone Negative (Negative); Urine Leukocyte 3+ (Negative); Urine Nitrite Positive (Negative); Urine Occult Blood 4+ (Negative); Urine Urobilinogen Negative (Neg - 1+)
[2024-11-25 21:03] LABS: % Basophils 0.2 % (0-2); % Eosinophils 0.4 % (0-6); % Immature Granulocytes 0.3 % (0-0.5); % Lymphocytes 21.5 % (20.5-51.1); % Monocytes 9.9 % (1.7-9.3); % Neutrophils 67.7 % (42.2-75.2); Absolute Eosinophils 0.1 10^3/uL (0-0.7); Absolute Lymphocytes 2.7 10^3/uL (1.2-3.4); Absolute Monocytes 1.3 10^3/uL (0.1-0.6); Absolute Neutrophils 8.6 10^3/uL (1.4-6.5); Hemoglobin 15.6 g/dL (13.0-18.0); Mean Corp Hgb Conc. 33.2 g/dL (33.0-37.0); Mean Corpuscular Hgb 28.8 pg (27.0-31.0); Mean Corpuscular Volume 86.9 fL (80.0-94.0); Mean Platelet Volume 9.4 fL (7.4-10.4); Nucleated Red Blood Cells % 0 % (-); Platelet Count 200 10^3/uL (130-400); Red Blood Cell Count 5.41 10^6/uL (4.70-6.10); Red Cell Dist. Width 13.8 % (11.5-14.5); White Blood Cell Count 12.7 10^3/uL (4.8-10.8)
[2024-11-25 21:07] LABS: Urine Red Blood Cell >100 /HPF (0-2)
[2024-11-25 21:08] LABS: Urine Bacteria Moderate (Negative)
[2024-11-25 21:15] LABS: ALT (SGPT) 23 U/L (0-50); AST (SGOT) 30 U/L (17-59); Albumin 4.3 g/dl (3.5-5.0); Alkaline Phosphatase 67 U/L (38-126); Blood Urea Nitrogen 31 mg/dl (9-20); Carbon Dioxide 22 mmol/L (22-30); Chloride 102 mmol/L (98-107); Glucose 125 mg/dl (70-99); Potassium 4.6 mmol/L (3.5-5.1); Sodium 136 mmol/L (135-145); Total Bilirubin 1.6 mg/dl (0.2-1.3); Total Protein 6.7 g/dl (6.3-8.2); eGFR 52.41
[2024-11-25 22:21] VITALS: BMI 27.7
--- NOTE | 2024-11-25 22:43 | ED.GENMED ---
History of Present Illness
General
Chief Complaint: Catheter/Tube Problem
Source: patient
Exam Limitations: none
Time Seen by Provider: 11/25/24 22:32
History of Present Illness
History of Present Illness:
See MDM
Past History
Past History
ED Past Medical History: CAD (1 stent 22 yrs ago), HTN, Hypercholesterolemia, NIDDM, CT and Other (Diverticulosis)
ED Past Surgical History: Other (Colonoscopy with polyp removal)
Social History
Tobacco: Non-smoker
Alcohol: None
Drug: None
Personal:
Living: with family
Phy Exam
Physical Exam
Physical Exam:
See MDM
Course
Orders/Labs/Results
Orders:
Orders
11/25/24 20:49
Complete Blood Count/With Diff Urgent
Comprehensive Metabolic Panel Urgent
Urinalysis Reflex To Culture Urgent
Date Specimen was Collected: 11/25/24
Time Specimen was Collected: 20:38
Urine Microscopic Reflex Cult Urgent
Urine Culture Urgent
ESTEPHANIE Source: U
Specimen Description:
Date Specimen was Collected: 11/25/24
Time Specimen was Collected: 20:38
11/25/24 22:42
LevoFLOXacin [Levaquin] 500 mg PO NOW STA
Phosphate Enema [Fleet Phosphate Enema-Adult] 135 ml RECTAL NOW STA
11/26/24 00:23
Ibuprofen [Motrin] 600 mg PO NOW STA
Abnormal Lab Results
11/25/24
20:49
WBC 12.7 H 10^3/uL
(4.8-10.8)
Absolute Neuts (auto) 8.6 H 10^3/uL
(1.4-6.5)
Absolute Monos (auto) 1.3 H 10^3/uL
(0.1-0.6)
Monocytes % 9.9 H %
(1.7-9.3)
BUN 31 H mg/dl
(9-20)
Creatinine 1.4 H mg/dL
(0.7-1.3)
Glucose 125 H mg/dl
(70-99)
Total Bilirubin 1.6 H mg/dl
(0.2-1.3)
Ur Occult Blood Reflex 4+ A
(Negative)
Urine Nitrite (Reflex) Positive A
(Negative)
Leukocyte Esterase Rfl 3+ A
(Negative)
Urine RBC >100 A /HPF
(0-2)
Urine Bacteria (Reflex) Moderate A
(Negative)
Urine Albumin (Reflex) 4+ A
(Neg - Trace)
11/25/24 20:49
11/25/24 20:49
Vital Signs
Initial and Last Documented VS:
Initial Vital Signs
Temp Pulse Resp BP Pulse Ox
97.9 F 95 16 155/72 98
11/25/24 20:29 11/25/24 20:29 11/25/24 20:29 11/25/24 20:29 11/25/24 20:29
Last Documented Vital Signs
Temp Pulse Resp BP Pulse Ox
97.9 F 95 16 155/72 98
11/25/24 20:29 11/25/24 20:29 11/25/24 20:29 11/25/24 20:29 11/25/24 20:29
MDM/Problems Addressed
Differential Diagnosis Includes:
HPI and MDM Narrative:
74-year-old male presenting with hematuria and constipation. Patient had cystoscopy 2 days ago where he had a bladder mass removed. Apparently, the urine was clear at that time. Patient now noticing hematuria today and worsening abdominal pain.
Patient states he is constipated and has not defecated in several days. Patient is requesting an enema. Urinalysis was done prior to my assessment showing evidence of nitrites. This is likely not colonization given that the catheter was only
placed less than 48 hours ago. Will start Levaquin. Will provide enema.
The initial triage concern was that the patient could not drain his catheter. The catheter is draining without issues
Physical exam
General: Well appearing and non-toxic
HEENT: protecting airway
Neck: appears supple
CV: No evidence of cyanosis
Resp: No accessory muscle use
Abd: Non-distended. No focal tenderness noted
: Catheter with pink urine. No clots
Extremities: No deformities
Neuro: alert
Psych: Normal affect
Skin: Intact
Problems Addressed including Acute and Chronic Conditions affecting care:
1. Hematuria
Acuity: acute
Prognosis: stable
Details: Likely in setting of recent bladder surgery or possibly UTI. Will start Levaquin
2. Constipation
Acuity: acute
Prognosis: stable
Details: Patient requesting enema. Will provide enema and reassess symptoms
Updates
After enema, patient did have bowel movement and states he is feeling much better. He now has a mild headache. Will give dose of Motrin. Discussed taking dose of MiraLAX tomorrow morning
Differential Diagnosis (but not limited to): Constipation, hematuria, hemorrhagic cystitis
Testing considered: Abdominal x-ray
Drug therapy (if applicable): OTC meds, please see d/c instruction regarding Rx drugs
Amount and/or Complexity of Data Reviewed
Clinical info obtained from: Patient
External data reviewed: N/A
Labs I independently reviewed (but not limited to): Leukocytosis
Radiology: N/A
Pulse Ox: not hypoxic
EKG independently reviewed: N/A
Log Stacker Operator: N/A
Critical Care: N/A
Risk of Complication:
Social Determinants of health: Good social support
Discussed with other providers: N/A
Escalation of Care includes Admit/Obs: After being observed in the Emergency Department, pt stable for discharge.
Occasional wrong word or 'sound a like' substitutions may have occurred due to the inherent limitations of voice recognition software. Read the chart carefully and recognize, using context, where substitutions have occurred.
*Critical Care Note
Total Time (30-74mins, 75-104mins- exclusive of procedures): Not Applicable
ED Attending Note
-
Portions of this chart may have been created with voice recognition software.� Occasional wrong word or��sound alike� substitutions may have occurred due to the inherent limitations of voice recognition software.
Discharge Plan
Departure
Patient Disposition: Home (Routine Discharge)
Date of Disposition: 11/26/24
Time of Disposition: 00:24
Patient with high blood pressure during this ER visit?: Yes
Discharge Problem:
Acute UTI, Constipation
Instructions: Urinary tract infections in adults, BLOOD PRESSURE
Prescriptions:
New
levofloxacin 500 mg Tablet
500 mg PO DAILY Qty: 6 0RF
No Action
aspirin 81 MG tablet,delayed release (DR/EC)
81 mg PO DAILY
rosuvastatin [Crestor] 40 MG tablet
40 mg PO QPM
lisinopril 20 MG tablet
20 mg PO BID
acetaminophen 325 mg Tablet
650 mg PO DAILYPRN PRN (Reason: mild pain)
metoprolol succinate 100 mg Tablet Extended Release 24 Hr
100 mg PO DAILY
omeprazole 40 mg Capsule,Delayed Release(Dr/Ec)
40 mg PO DAILY
amlodipine 10 mg Tablet
10 mg PO DAILY
glimepiride 4 mg Tablet
4 mg PO BID
coQ10 (ubiquinol) [Qunol Roby CoQ10] 100 mg Capsule
100 mg PO DAILY
naproxen sodium [Aleve] 220 mg tablet
440 mg PO BID PRN (Reason: Pain) Qty: 1 0RF
diazepam 5 mg tablet
5 mg PO BID PRN (Reason: bladder spasms) Qty: 10 0RF
tramadol 50 mg tablet
50 mg PO TID PRN (Reason: severe pain) Qty: 10 0RF
Referrals:
Alona Campos MD [Family Provider] -
Activity Restrictions/Additional Instructions:
Please return for any worsening symptoms.
You may return at any time if you have further concerns.
Please follow up with your urologist at the first available appointment, preferably this week.
Please take a dose of MiraLAX tomorrow.
Thank you for choosing [facility].
Interventions
Interventions:
*Neglect/Abuse Screening Last Done: 11/25/24 22:21
JO-Xgiooz-Xcgwhwqzpg Assessment Last Done: 11/25/24 22:21
ED-Male Genitourinary Assessment Last Done: 11/26/24 00:14
Discharge Date and Time
Print Language: URDU
[2024-11-25] MEDS: FLEET PHOSPHATE ENEMA-ADULT 135 ML RECTAL (22:50)
[2024-11-25] MEDS: LEVAQUIN 500 MG PO (22:50)
[2024-11-26] MEDS: MOTRIN 600 MG PO (00:41)
== END 2024-11-26 00:45 | disposition home or self-care (01) ==
LOC: EMR 20:28
PROVIDERS: EMERGENCY PHYSICIAN Student in an Organized Health Care Education/Training Program; FAMILY PHYSICIAN Family Medicine; REFERRING PHYSICIAN Specialist
DX: N39.0 Urinary tract infection, site not specified (principal); K59.00 Constipation, unspecified; E11.9 Type 2 diabetes mellitus without complications; E78.00 Pure hypercholesterolemia, unspecified; I10 Essential (primary) hypertension; I25.10 Atherosclerotic heart disease of native coronary artery without angina pectoris; Z98.890 Other specified postprocedural states
CPT/HCPCS: 99283; 80053; 81003; 81015; 85025; 87086

== ENCOUNTER 2024-11-28 07:03 | Observation (INO) | payer MEDICARE, OTHER, SELFPAY ==
[2024-11-28 00:49] VITALS: BP 164/86; BMI 29.2
--- NOTE | 2024-11-28 01:40 | ED.GENMED ---
History of Present Illness
<Sean Winkler MD, Resident - Last Filed: 11/28/24 06:02>
General
Chief Complaint: Bowel Problem
Time Seen by Provider: 11/28/24 00:58
History of Present Illness
History of Present Illness:
Patient is a 74-year-old male who presents to ER complaining of constipation and lower abdominal tenderness. Patient reports he had an episode of loose stool this morning, but has not had a bowel movement since then. States he is passing gas.
In addition, patient admits lower abdominal tenderness. Reports symptoms similar to what he experienced 3 days ago which prompted him to come to the for evaluation. At that time, he states he was constipated and had a bowel movements after he was
given a Fleet enema. Today, patient reports he has taken MiraLAX tonight, but sill without BM. He has a catheter present, inserted after urological procedure which has been draining.
Past History
<Sean Winkler MD, Resident - Last Filed: 11/28/24 06:02>
Past History
ED Past Medical History: CAD (1 stent 22 yrs ago), HTN, Hypercholesterolemia, NIDDM, [place] and Other (Diverticulosis)
ED Past Surgical History: Other (Colonoscopy with polyp removal)
Social History
Tobacco: Non-smoker
Alcohol: None
Drug: None
Personal:
Living: with family
Review of Systems
<Sean Winkler MD, Resident - Last Filed: 11/28/24 06:02>
Review of Systems
Constitutional: Reports no symptoms
EENT: Reports no symptoms
Respiratory: Reports no symptoms
Cardiac: Reports no symptoms
ABD/GI: Reports abdominal pain
Phy Exam
<Sean Winkler MD, Resident - Last Filed: 11/28/24 06:02>
General Physical Exam
General Presentation: well appearing and mild distress
Cardiovascular Exam
Cardiovascular Exam: regular rate/rhythm and no edema
Pulmonary Exam
Pulmonary Exam: lungs clear
Gastrointestinal Exam
Gastrointestinal Exam: normal bowel sounds, soft, non distended and tender
Genitourinary Exam Male
Exam Male: other (Zuniga present)
Psychiatric Exam
Psychiatric Exam: normal mood/affect
Course
<Sean Winkler MD, Resident - Last Filed: 11/28/24 06:02>
Orders/Labs/Results
Orders:
Orders
11/28/24 01:14
CT Abd/Pel (IV only)-[facility] only Urgent
Comment:
Reason For Exam: abdominal tenderness
11/28/24 01:35
Complete Blood Count/With Diff Urgent
Comprehensive Metabolic Panel Urgent
Lipase Urgent
11/28/24 Breakfast
2200 calorie (18 carb) Diabetic
11/28/24 06:12
Phosphate Enema [Fleet Phosphate Enema-Adult] 135 ml RECTAL NOW STA
11/28/24 06:14
Admit Patient As Directed
Co-Sign Provider:
Level of Care: Observation services
Assign to:: Medical/Surgical
[facility]
Diagnosis: bladder cancer
Code Status As Directed
Resuscitation Status: Full Code
Acetaminophen [Tylenol] 650 mg PO Q4HPRN PRN
Oxycodone/Acetaminophen [Percocet 5/325] 2 tablet PO Q4HPRN PRN
Tolterodine Extended Release [Detrol LA] 4 mg PO DAILYPRN PRN
diazePAM [Valium Injection] 5 mg IV Q4HPRN PRN
PRN Pain Medication Management As Directed
May give lesser potent ordered pain med per pt: Yes
preference::
Protocol:: Medication orders for pain may be administered in a
manner that supports deferring to patient preference
when the pt is:
- Requesting an ordered lesser potent pain medication.
Least to most potent pain medications are defined
as: acetaminophen < NSAID < tramadol < opioids
(morphine, oxycodone, hydromorphone).
- Requesting a lesser dose of the same medication IF
ORDERED.
- Requesting a less intrusive route of administration
if both routes are prescribed by the provider (PO <
IV).
11/28/24 06:15
Activity As Directed
Activity Level: Ambulate
Anti-embolism (ODIN) Hose As Directed
Type: Thigh high
Catheter- Indwelling As Directed
Reason for insertion: Urology Determination
Type: 3 way
Catheter-Hand Irrigation As Directed
Solution:: Sterile 0.9% NaCl
Amount: 250
Frequency: prn obstruction
Reason for hand irrigation: prn obstruction
Irrigate via:: Catheter directly
Intake/ Output As Directed
Frequency: Per unit guidelines
Pneumatic Compression Sleeves As Directed
Type: Thigh high
Vital Signs As Directed
Frequency: Per unit guidelines
DX Deep Vein Thrombosis Video Routine
11/28/24 06:19
Dextrose 50%-Water [Dextrose 50% Syringe] 12.5 grams IV [id number] PRN
Glucagon [GlucaGen] 1 mg IM PRN PRN
Bedside Glucose Monitoring As Directed
Frequency: AC&HS
Additional Instructions:: Change to q6h if pt on TPN, tube feeding or not eating
11/28/24 07:00
Flush (0.9% Sodium Chloride) [Flush (Nss)] See Dose Instructions IV PER PROTOCOL
Opium/Belladonna Alkaloids [B&O Supprettes] 1 supp RECTAL ONCE ONE
11/28/24 07:30
Docusate Sodium [Colace] 100 mg PO AC
Insulin Aspart Corrective Low [Novolog Flexpen-Low Resistance] See Protocol SC AC
11/28/24 08:00
Amlodipine [Norvasc] 10 mg PO DAILY
Aspirin Low Dose EC [Aspir Low (Enteric Coated)] 81 mg PO DAILY
Glimepiride [Amaryl] 4 mg PO BID
Lisinopril [Zestril] 20 mg PO BID
Metoprolol Xl [Toprol Xl] 100 mg PO DAILY
omeprazole 40 mg PO DAILY
11/28/24 18:00
Rosuvastatin Calcium [Crestor] 40 mg PO QPM
11/29/24 06:00
Discontinue Zuniga Catheter As Directed
Comment:
11/29/24 08:00
LevoFLOXacin [Levaquin] 250 mg PO DAILY
Abnormal Lab Results
11/28/24
01:35
Abs Immat Gran (auto) 0.1 H 10^3/uL
(0-0.05)
Absolute Neuts (auto) 9.4 H 10^3/uL
(1.4-6.5)
Neutrophils % 86.3 H %
(42.2-75.2)
Lymphocytes % 11.7 L %
(20.5-51.1)
Monocytes % 1.1 L %
(1.7-9.3)
Carbon Dioxide 20 L mmol/L
(22-30)
BUN 38 H mg/dl
(9-20)
AST 64 H U/L
(17-59)
Total Protein 6.1 L g/dl
(6.3-8.2)
11/28/24 01:35
11/28/24 01:35
Vital Signs
Initial and Last Documented VS:
Initial Vital Signs
Temp Pulse Resp BP Pulse Ox
98 F 92 20 164/86 96
11/28/24 00:49 11/28/24 00:49 11/28/24 00:49 11/28/24 00:49 11/28/24 00:49
Last Documented Vital Signs
Temp Pulse Resp BP Pulse Ox
98 F 97 20 157/109 98
11/28/24 00:49 11/28/24 05:24 11/28/24 05:24 11/28/24 05:24 11/28/24 05:24
<Conchita Guillen, - Last Filed: 11/28/24 06:26>
Orders/Labs/Results
Orders:
Orders
11/28/24 01:14
CT Abd/Pel (IV only)-[facility] only Urgent
Comment:
Reason For Exam: abdominal tenderness
11/28/24 01:35
Complete Blood Count/With Diff Urgent
Comprehensive Metabolic Panel Urgent
Lipase Urgent
11/28/24 Breakfast
2200 calorie (18 carb) Diabetic
11/28/24 06:12
Phosphate Enema [Fleet Phosphate Enema-Adult] 135 ml RECTAL NOW STA
11/28/24 06:14
Admit Patient As Directed
Co-Sign Provider:
Level of Care: Observation services
Assign to:: Medical/Surgical
Physician / Group: [facility]
Diagnosis: bladder cancer
Code Status As Directed
Resuscitation Status: Full Code
Acetaminophen [Tylenol] 650 mg PO Q4HPRN PRN
Oxycodone/Acetaminophen [Percocet 5/325] 2 tablet PO Q4HPRN PRN
Tolterodine Extended Release [Detrol LA] 4 mg PO DAILYPRN PRN
diazePAM [Valium Injection] 5 mg IV Q4HPRN PRN
PRN Pain Medication Management As Directed
May give lesser potent ordered pain med per pt: Yes
preference::
Protocol:: Medication orders for pain may be administered in a
manner that supports deferring to patient preference
when the pt is:
- Requesting an ordered lesser potent pain medication.
Least to most potent pain medications are defined
as: acetaminophen < NSAID < tramadol < opioids
(morphine, oxycodone, hydromorphone).
- Requesting a lesser dose of the same medication IF
ORDERED.
- Requesting a less intrusive route of administration
if both routes are prescribed by the provider (PO <
IV).
11/28/24 06:15
Activity As Directed
Activity Level: Ambulate
Anti-embolism (ODIN) Hose As Directed
Type: Thigh high
Catheter- Indwelling As Directed
Reason for insertion: Urology Determination
Type: 3 way
Catheter-Hand Irrigation As Directed
Solution:: Sterile 0.9% NaCl
Amount: 250
Frequency: prn obstruction
Reason for hand irrigation: prn obstruction
Irrigate via:: Catheter directly
Intake/ Output As Directed
Frequency: Per unit guidelines
Pneumatic Compression Sleeves As Directed
Type: Thigh high
Vital Signs As Directed
Frequency: Per unit guidelines
DX Deep Vein Thrombosis Video Routine
11/28/24 06:19
Dextrose 50%-Water [Dextrose 50% Syringe] 12.5 grams IV [id number] PRN
Glucagon [GlucaGen] 1 mg IM PRN PRN
Bedside Glucose Monitoring As Directed
Frequency: AC&HS
Additional Instructions:: Change to q6h if pt on TPN, tube feeding or not eating
11/28/24 07:00
Flush (0.9% Sodium Chloride) [Flush (Nss)] See Dose Instructions IV PER PROTOCOL
Opium/Belladonna Alkaloids [B&O Supprettes] 1 supp RECTAL ONCE ONE
11/28/24 07:30
Docusate Sodium [Colace] 100 mg PO AC
Insulin Aspart Corrective Low [Novolog Flexpen-Low Resistance] See Protocol SC AC
11/28/24 08:00
Amlodipine [Norvasc] 10 mg PO DAILY
Aspirin Low Dose EC [Aspir Low (Enteric Coated)] 81 mg PO DAILY
Glimepiride [Amaryl] 4 mg PO BID
Lisinopril [Zestril] 20 mg PO BID
Metoprolol Xl [Toprol Xl] 100 mg PO DAILY
omeprazole 40 mg PO DAILY
11/28/24 18:00
Rosuvastatin Calcium [Crestor] 40 mg PO QPM
11/29/24 06:00
Discontinue Zuniga Catheter As Directed
Comment:
11/29/24 08:00
LevoFLOXacin [Levaquin] 250 mg PO DAILY
Abnormal Lab Results
11/28/24
01:35
Abs Immat Gran (auto) 0.1 H 10^3/uL
(0-0.05)
Absolute Neuts (auto) 9.4 H 10^3/uL
(1.4-6.5)
Neutrophils % 86.3 H %
(42.2-75.2)
Lymphocytes % 11.7 L %
(20.5-51.1)
Monocytes % 1.1 L %
(1.7-9.3)
Carbon Dioxide 20 L mmol/L
(22-30)
BUN 38 H mg/dl
(9-20)
AST 64 H U/L
(17-59)
Total Protein 6.1 L g/dl
(6.3-8.2)
11/28/24 01:35
11/28/24 01:35
Vital Signs
Initial and Last Documented VS:
Initial Vital Signs
Temp Pulse Resp BP Pulse Ox
98 F 92 20 164/86 96
11/28/24 00:49 11/28/24 00:49 11/28/24 00:49 11/28/24 00:49 11/28/24 00:49
Last Documented Vital Signs
Temp Pulse Resp BP Pulse Ox
98 F 97 20 157/109 98
11/28/24 00:49 11/28/24 05:24 11/28/24 05:24 11/28/24 05:24 11/28/24 05:24
<Sean Winkler MD, Resident - Last Filed: 11/28/24 06:02>
*Critical Care Note
Total Time (30-74mins, 75-104mins- exclusive of procedures): Not Applicable
ED Attending Note
<Sean Winkler MD, Resident - Last Filed: 11/28/24 06:02>
-
Portions of this chart may have been created with voice recognition software.� Occasional wrong word or��sound alike� substitutions may have occurred due to the inherent limitations of voice recognition software.
<Conchita Guillen DO - Last Filed: 11/28/24 06:26>
ED Attending Note
Patient seen and examined by attending physician: Yes
I performed a history and physical exam of patient and discussed management with resident, I reviewed resident's note and agree with documented findings and plan of care.: Yes
ED Attending Note:
74-year-old gentleman with history of bladder cancer underwent cystoscopy with bladder tumor removal November 24, discharged to home with Zuniga catheter in place.
Evaluated in this ED November 25 with complaints of constipation and admits that he was feeling somewhat constipated even prior to the procedure. He was given a fleets enema, successfully passing a few small nadira of stool.
Urinalysis was suspicious for a UTI and he was placed on Levaquin on November 25. Urine culture has returned negative.
Despite taking MiraLAX and stool softener patient complains of significant suprapubic abdominal discomfort, feeling that he is still constipated however past small loose stool earlier today.
He complains of some dysuria, urethral irritation but notes catheter has been draining without leaking around the catheter.
He has had brief intermittent chills yesterday morning but has not had a fever.
74-year-old gentleman appears his stated age, awake and alert, pleasant, appears in no acute distress. Afebrile.
Abdomen is rotund, soft, significant tenderness suprapubic region with mild guarding, no rebound or rigidity.
Zuniga catheter in place draining eddie urine with few flecks of blood.
According to nursing staff, bedside bladder scan reveals no urine within the bladder which is consistent with exam, Zuniga catheter is draining well.
Concern for constipation, colitis, diverticulitis, postoperative bladder wall irritation, concern for bladder perforation.
Urine culture from November 25 shows no growth. Thus no evidence of UTI.
Will check labs and will plan for CT abdomen pelvis with IV contrast.
Discharge Plan
Departure
Patient Disposition: Admit
Date of Disposition: 11/28/24
Time of Disposition: 06:25
Admit to: Med/Surg
Admit to doctor: Den
Presentation/result/management discussed w/ accepting MD/DO: urology
Condition: Fair
Discharge Problem:
Acute postoperative abdominal pain
Prescriptions:
No Action
aspirin 81 MG tablet,delayed release (DR/EC)
81 mg PO DAILY
rosuvastatin [Crestor] 40 MG tablet
40 mg PO QPM
lisinopril 20 MG tablet
20 mg PO BID
metoprolol succinate 100 mg Tablet Extended Release 24 Hr
100 mg PO DAILY
omeprazole 40 mg Capsule,Delayed Release(Dr/Ec)
40 mg PO DAILY
amlodipine 10 mg Tablet
10 mg PO DAILY
glimepiride 4 mg Tablet
4 mg PO BID
coQ10 (ubiquinol) [Qunol Roby CoQ10] 100 mg Capsule
100 mg PO DAILY
diazepam 5 mg tablet
5 mg PO BID PRN (Reason: bladder spasms) Qty: 10 0RF
tramadol 50 mg tablet
50 mg PO TID PRN (Reason: severe pain) Qty: 10 0RF
levofloxacin 500 mg Tablet
500 mg PO DAILY Qty: 6 0RF
docusate sodium [Colace] 100 mg Capsule
100 mg PO BID
Referrals:
Alona Campos MD [Family Provider] -
Interventions
Interventions:
*Risk Screen - Suicide Last Done: 11/28/24 00:49
*General Assessment Last Done: 11/28/24 00:49
*Neglect/Abuse Screening Last Done: 11/28/24 00:49
*ED- Fall Risk Assessment Last Done: 11/28/24 00:49
*ED COVID-19 Vaccine History Last Done: 11/28/24 00:49
FK-Urapqm-Eyfanxqonb Assessment Last Done: 11/28/24 01:01
Discharge Date and Time
Print Language: UKRAINIAN
[2024-11-28 01:44] LABS: % Basophils 0.1 % (0-2); % Eosinophils 0.3 % (0-6); % Immature Granulocytes 0.5 % (0-0.5); % Lymphocytes 11.7 % (20.5-51.1); % Monocytes 1.1 % (1.7-9.3); % Neutrophils 86.3 % (42.2-75.2); Absolute Immature Granulocytes 0.1 10^3/uL (0-0.05); Absolute Lymphocytes 1.3 10^3/uL (1.2-3.4); Absolute Monocytes 0.1 10^3/uL (0.1-0.6); Absolute Neutrophils 9.4 10^3/uL (1.4-6.5); Hematocrit 42.3 % (39.0-52.0); Hemoglobin 14.3 g/dL (13.0-18.0); Mean Corp Hgb Conc. 33.8 g/dL (33.0-37.0); Mean Corpuscular Hgb 29.1 pg (27.0-31.0); Mean Platelet Volume 9.7 fL (7.4-10.4); Nucleated Red Blood Cells % 0 % (-); Platelet Count 170 10^3/uL (130-400); Red Blood Cell Count 4.92 10^6/uL (4.70-6.10); Red Cell Dist. Width 13.7 % (11.5-14.5); White Blood Cell Count 10.8 10^3/uL (4.8-10.8)
[2024-11-28 02:10] LABS: ALT (SGPT) 42 U/L (0-50); AST (SGOT) 64 U/L (17-59); Albumin 3.5 g/dl (3.5-5.0); Alkaline Phosphatase 77 U/L (38-126); Blood Urea Nitrogen 38 mg/dl (9-20); Calcium 9.4 mg/dl (8.4-10.2); Carbon Dioxide 20 mmol/L (22-30); Chloride 105 mmol/L (98-107); Estimated Creatinine Clearance 54 ml/min; Glucose 75 mg/dl (70-99); Lipase 144 U/L (23-300); Potassium 4.5 mmol/L (3.5-5.1); Sodium 136 mmol/L (135-145); Total Bilirubin 1.1 mg/dl (0.2-1.3); Total Protein 6.1 g/dl (6.3-8.2); eGFR 57.29
[2024-11-28 03:14] VITALS: BP 155/79
[2024-11-28 05:24] VITALS: BP 157/109
--- NOTE | 2024-11-28 05:47 | CONS.URO ---
Consultation
-
Date/Time Consultation Performed: 11/28/2024 0540
Requesting Provider: ED
Performing Provider: Den
Reason for Consultation: post-TURBT symptoms
Medical History
History of Present Illness
74 yo male s/p TURBT for Bladder cancer on 11/24;as been experiencing bladder pain and sense of constipation since.
Past Medical History
Past Medical History: Other ( CAD s/p stent 22 yrs ago), HTN, Hypercholesterolemia, NIDDM, MD )
Allergies/Home Medications
Allergies
Allergy/AdvReac Type Severity Reaction Status Date / Time
adhesive tape Allergy Rash, Verified 11/25/24 20:38
Redness
latex Allergy Rash, Verified 11/25/24 20:38
Redness
Home Medications
�Medication �Instructions �Recorded �Confirmed �Type
aspirin 81 mg tablet,delayed 81 mg PO DAILY Blood clot 11/18/15 11/28/24 History
release prevention/tx
rosuvastatin 40 mg tablet (Crestor) 40 mg PO QPM High cholesterol 11/18/15 11/28/24 History
lisinopril 20 mg tablet 20 mg PO BID Blood pressure 06/08/21 11/28/24 History
amlodipine 10 mg tablet 10 mg PO DAILY Blood Pressure 08/29/24 11/28/24 History
coQ10 (ubiquinol) 100 mg capsule 100 mg PO DAILY Supplement 08/29/24 11/28/24 History
(Qunol Roby CoQ10)
glimepiride 4 mg tablet 4 mg PO BID Diabetes 08/29/24 11/28/24 History
metoprolol succinate 100 mg 100 mg PO DAILY Blood Pressure 08/29/24 11/28/24 History
tablet,extended release 24 hr
omeprazole 40 mg capsule,delayed 40 mg PO DAILY Gastrointestinal 08/29/24 11/28/24 History
release Issue
diazepam 5 mg tablet 5 mg PO BID PRN bladder spasms #10 11/25/24 11/28/24 Rx
tabs
tramadol 50 mg tablet 50 mg PO TID PRN severe pain #10 11/25/24 11/28/24 Rx
tabs
levofloxacin 500 mg tablet 500 mg PO DAILY #6 tabs 11/26/24 11/28/24 Rx
docusate sodium 100 mg capsule 100 mg PO BID 11/28/24 11/28/24 History
(Colace)
Physical Exam
Vital Signs
Vital Signs
Temp Pulse Resp BP Pulse Ox
98 F 97 20 157/109 98
11/28/24 00:49 11/28/24 05:24 11/28/24 05:24 11/28/24 05:24 11/28/24 05:24
Lab / Testing Results
Laboratory Results
11/28/24 01:35
11/28/24 01:35
Physical Exam
adult male standing at [facility] in ED
General: No Apparent Distress
GI: Soft (protuberant [baseline], no peritoneal signs, no rebound; some tenderness in SP area)
Genito-urinary: Zuniga Catheter (eddie urine to leg bag)
Skin: Warm
Neuro: Awake and Alert
Psych: Calm
Assessment / Plan
-
post-TURBT symptoms -- air adjacent to bladder within RP space is not unexpected or worrisome
stool in rectum but no colonic obstipation
possible UTI
Rec:
enema to alleviate sense of constipation
remove Zuniga during AM on 11/29
B&O suppository after enema
Data Reviewed
-
CT Scan: Image personally visualized and interpreted
[2024-11-28] MEDS: FLEET PHOSPHATE ENEMA-ADULT 135 ML RECTAL (06:21)
[2024-11-28 07:00] VITALS: BP 144/71
--- NOTE | 2024-11-28 07:50 | EDRN ---
Patient does not want the B and O suppository this time. Patient stated that he is still having BM after the enema and does not want it not to absorb.Spoke to pharmacy and will send a tech to take it back to the pharmacy. Patient stated that he will
take it when he's done moving his bowels. Spoke to GALI Pal on the floor about the above.
[2024-11-28] MEDS: ASPIR LOW (ENTERIC COATED) 81 MG PO (08:18)
[2024-11-28] MEDS: PERCOCET 5/325 2 TABLET PO (08:18)
[2024-11-28] MEDS: ZESTRIL 20 MG PO ×2 (08:18→19:58)
[2024-11-28] MEDS: NORVASC 10 MG PO (08:18)
[2024-11-28] MEDS: COLACE 100 MG PO ×3 (08:19→17:59)
[2024-11-28] MEDS: PROTONIX 40 MG PO (08:19)
[2024-11-28] MEDS: TOPROL XL 100 MG PO (08:19)
[2024-11-28 08:49] LABS: Glucose - Point of Care 72 mg/dl (70-99)
[2024-11-28] MEDS: AMARYL 4 MG PO ×2 (08:50→17:59)
--- NOTE | 2024-11-28 10:04 | CM ---
Patient seen at bedside
IA Completed
OBS status - form signed in chart
Current with VN - notified [facility] liaison
Lives with in 2 story home, 4 steps, flight to bed/bath
PLOF: independent
PCP: Alona Campos
PLAN: home with [facility]
[2024-11-28 12:23] LABS: Glucose - Point of Care 159 mg/dl (70-99)
[2024-11-28 15:00] VITALS: BP 124/62
[2024-11-28 16:52] LABS: Glucose - Point of Care 132 mg/dl (70-99)
[2024-11-28] MEDS: CRESTOR 40 MG PO (18:00)
--- NOTE | 2024-11-28 18:00 | PTCARENOTE ---
Received patient shortly after start of shift on stretcher from ED. Pt walked from stretcher to bed with standby assist. Pt with c/o pain at catheter site. PRN pain meds administered with +effects. Pt fixated on knox catheter/leg bag for most of
shift, ringing call dudley often after small amount of urine was in leg bag to be emptied. Pt rang call dudley and stated that urine was coming out of the meatus of his penis. Urologist Dr Crenshaw made aware with new orders to remove knox as well as
PRN Pyridium - Knox removed and patient urinating yellow urine in urinal. Tylenol given for headache towards end of shift. Call dudley within reach.
[2024-11-28] MEDS: TYLENOL 650 MG PO (18:07)
[2024-11-28] MEDS: Pyridium 200 MG PO (18:26)
[2024-11-28] MEDS: CLARITIN 10 MG PO (19:52)
[2024-11-28 22:22] LABS: Glucose - Point of Care 128 mg/dl (70-99)
[2024-11-28 23:00] VITALS: BP 159/74
[2024-11-29] MEDS: TYLENOL 650 MG PO (00:54)
[2024-11-29 07:33] VITALS: BP 145/64
[2024-11-29 07:46] LABS: Glucose - Point of Care 107 mg/dl (70-99)
[2024-11-29] MEDS: AMARYL 4 MG PO (08:15)
[2024-11-29] MEDS: ASPIR LOW (ENTERIC COATED) 81 MG PO (08:15)
[2024-11-29] MEDS: LEVAQUIN 250 MG PO (08:16)
[2024-11-29] MEDS: TOPROL XL 100 MG PO (08:16)
[2024-11-29] MEDS: PROTONIX 40 MG PO (08:16)
[2024-11-29] MEDS: NORVASC 10 MG PO (08:16)
[2024-11-29] MEDS: COLACE 100 MG PO (08:20)
[2024-11-29] MEDS: ZESTRIL 20 MG PO (08:20)
--- NOTE | 2024-11-29 08:26 | W.PN.URO.CBU ---
Today's Communication / Plan
-
discharge
Assessment / Plan
-
improved
Diagnosis
-
Date of Service: November 29, 2024
-
Patient Diagnosis:
post TURBT pain
Subjective
-
has voided since Zuniga removal
'no pain and it was yellow'
Objective
-
Vital Signs
Temp Pulse Resp BP Pulse Ox
98.9 F 82 16 145/64 95
11/29/24 07:33 11/29/24 07:33 11/29/24 07:33 11/29/24 07:33 11/29/24 07:33
Intake and Output
11/28/24 11/29/24 11/30/24
06:59 06:59 06:59
Intake Total 1440 / 1440
Output Total 850 / 850 800 / 800
Balance -850 / -850 640 / 640
Intake:
Oral fluids 1440 / 1440
Output:
Urine, Zuniga 850 / 850
Urine, Voided 800 / 800
Other:
Number of approximated LARGE 2
amounts of urine
Laboratory Results
11/28/24 01:35
11/28/24 01:35
Physical Exam
-
General - eating breakfast seated at bedside
Abdomen - soft, non-tender, positive bowel sounds, no distention
--- NOTE | 2024-11-29 08:28 | VNURNOTE ---
Chart reviewed. Patient is current with [facility] nursing. Will continue to follow hospital course and DC plans.
[2024-11-29 10:53] VITALS: BP 148/76
--- NOTE | 2024-11-29 11:19 | VNURNOTE ---
Spoke with patient. He confirms he has had BMs and knox has been removed, + voiding. Patient declining further VN visits. He intends on following up with PCP. [facility] Intake notified.
== END 2024-11-29 10:50 | disposition home health service (06) ==
LOC: 3 WEST ACU 07:03
PROVIDERS: Student in an Organized Health Care Education/Training Program; ADMITTING PHYSICIAN Specialist; EMERGENCY PHYSICIAN Emergency Medicine; FAMILY PHYSICIAN Family Medicine
DX: G89.18 Other acute postprocedural pain (principal); K59.00 Constipation, unspecified; R10.819 Abdominal tenderness, unspecified site; R19.7 Diarrhea, unspecified; C67.9 Malignant neoplasm of bladder, unspecified; E78.00 Pure hypercholesterolemia, unspecified; I10 Essential (primary) hypertension; E11.9 Type 2 diabetes mellitus without complications; I25.10 Atherosclerotic heart disease of native coronary artery without angina pectoris; N13.30 Unspecified hydronephrosis; K76.0 Fatty (change of) liver, not elsewhere classified; I25.2 Old myocardial infarction; Z87.19 Personal history of other diseases of the digestive system; Z95.5 Presence of coronary angioplasty implant and graft; Z79.82 Long term (current) use of aspirin; Z79.84 Long term (current) use of oral hypoglycemic drugs; Z88.8 Allergy status to other drugs, medicaments and biological substances; Z91.040 Latex allergy status
CPT/HCPCS: 51798; 74177; 80053; 82962; 83690; 85025; 99285; G0378; Q9967

== ENCOUNTER → 2025-01-17 12:58 | Outpatient (REF) | payer MEDICARE, OTHER, SELFPAY | LOC: WOUND 12:58 | PROVIDERS: ATTENDING PHYSICIAN Surgery | DX: L89.320 Pressure ulcer of left buttock, unstageable (principal); I25.10 Atherosclerotic heart disease of native coronary artery without angina pectoris; I51.9 Heart disease, unspecified; I73.9 Peripheral vascular disease, unspecified | CPT/HCPCS: 10140; 99204 ==

== ENCOUNTER → 2025-01-24 10:55 | Outpatient (REF) | payer MEDICARE, OTHER, SELFPAY | LOC: WOUND 10:55 | PROVIDERS: ATTENDING PHYSICIAN Surgery | DX: L89.324 Pressure ulcer of left buttock, stage 4 (principal); I25.10 Atherosclerotic heart disease of native coronary artery without angina pectoris; I51.9 Heart disease, unspecified; I73.9 Peripheral vascular disease, unspecified | CPT/HCPCS: 11043 ==

== ENCOUNTER → 2025-02-14 10:35 | Outpatient (REF) | payer MEDICARE, OTHER, SELFPAY | LOC: WOUND 10:35 | PROVIDERS: ATTENDING PHYSICIAN Surgery | DX: L89.324 Pressure ulcer of left buttock, stage 4 (principal); I25.10 Atherosclerotic heart disease of native coronary artery without angina pectoris; I51.9 Heart disease, unspecified; I73.9 Peripheral vascular disease, unspecified | CPT/HCPCS: 99213 ==

== ENCOUNTER → 2025-02-21 10:47 | Outpatient (REF) | payer MEDICARE, OTHER, SELFPAY | LOC: WOUND 10:47 | PROVIDERS: ATTENDING PHYSICIAN Surgery; FAMILY PHYSICIAN Family Medicine | DX: L89.324 Pressure ulcer of left buttock, stage 4 (principal); I25.10 Atherosclerotic heart disease of native coronary artery without angina pectoris; I51.9 Heart disease, unspecified; I73.9 Peripheral vascular disease, unspecified | CPT/HCPCS: 97605; 99213 ==

== ENCOUNTER → 2025-02-28 10:48 | Outpatient (REF) | payer MEDICARE, OTHER, SELFPAY | LOC: WOUND 10:48 | PROVIDERS: ATTENDING PHYSICIAN Surgery; FAMILY PHYSICIAN Family Medicine | DX: L89.324 Pressure ulcer of left buttock, stage 4 (principal); I25.10 Atherosclerotic heart disease of native coronary artery without angina pectoris; I51.9 Heart disease, unspecified; I73.9 Peripheral vascular disease, unspecified | CPT/HCPCS: 97605; 99213 ==

== ENCOUNTER → 2025-03-07 10:43 | Outpatient (REF) | payer MEDICARE, OTHER, SELFPAY | LOC: WOUND 10:43 | PROVIDERS: ATTENDING PHYSICIAN Surgery; FAMILY PHYSICIAN Family Medicine | DX: L89.324 Pressure ulcer of left buttock, stage 4 (principal); I25.10 Atherosclerotic heart disease of native coronary artery without angina pectoris; I51.9 Heart disease, unspecified; I73.9 Peripheral vascular disease, unspecified | CPT/HCPCS: 97605; 99213 ==

== ENCOUNTER → 2025-03-14 10:31 | Outpatient (REF) | payer MEDICARE, OTHER, SELFPAY | LOC: WOUND 10:31 | PROVIDERS: ATTENDING PHYSICIAN Surgery | DX: L89.324 Pressure ulcer of left buttock, stage 4 (principal); I25.10 Atherosclerotic heart disease of native coronary artery without angina pectoris; I51.9 Heart disease, unspecified; I73.9 Peripheral vascular disease, unspecified | CPT/HCPCS: 11042; 97605 ==

== ENCOUNTER → 2025-03-21 10:46 | Outpatient (REF) | payer MEDICARE, OTHER, SELFPAY | LOC: WOUND 10:46 | PROVIDERS: ATTENDING PHYSICIAN Surgery | DX: L89.324 Pressure ulcer of left buttock, stage 4 (principal); I25.10 Atherosclerotic heart disease of native coronary artery without angina pectoris; I51.9 Heart disease, unspecified; I73.9 Peripheral vascular disease, unspecified | CPT/HCPCS: 11042; 72220; 97605 ==

== ENCOUNTER → 2025-03-28 10:52 | Outpatient (REF) | payer MEDICARE, OTHER, SELFPAY | LOC: WOUND 10:52 | PROVIDERS: ATTENDING PHYSICIAN Surgery; FAMILY PHYSICIAN Family Medicine | DX: L89.324 Pressure ulcer of left buttock, stage 4 (principal); I25.10 Atherosclerotic heart disease of native coronary artery without angina pectoris; I51.9 Heart disease, unspecified; I73.9 Peripheral vascular disease, unspecified | CPT/HCPCS: 11042; 97605 ==

== ENCOUNTER → 2025-04-04 10:47 | Outpatient (REF) | payer MEDICARE, OTHER, SELFPAY | LOC: WOUND 10:47 | PROVIDERS: ATTENDING PHYSICIAN Surgery; FAMILY PHYSICIAN Family Medicine | DX: L89.324 Pressure ulcer of left buttock, stage 4 (principal); I25.10 Atherosclerotic heart disease of native coronary artery without angina pectoris; I51.9 Heart disease, unspecified; I73.9 Peripheral vascular disease, unspecified | CPT/HCPCS: 11042; 97605 ==

== ENCOUNTER → 2025-04-11 10:29 | Outpatient (REF) | payer MEDICARE, OTHER, SELFPAY | LOC: WOUND 10:29 | PROVIDERS: ATTENDING PHYSICIAN Surgery; FAMILY PHYSICIAN Family Medicine | DX: L89.324 Pressure ulcer of left buttock, stage 4 (principal); I25.10 Atherosclerotic heart disease of native coronary artery without angina pectoris; I51.9 Heart disease, unspecified; I73.9 Peripheral vascular disease, unspecified | CPT/HCPCS: 11042; 97605 ==

== ENCOUNTER → 2025-04-25 10:45 | Outpatient (REF) | payer MEDICARE, OTHER, SELFPAY | LOC: WOUND 10:45 | PROVIDERS: ATTENDING PHYSICIAN Surgery; FAMILY PHYSICIAN Family Medicine | DX: L89.324 Pressure ulcer of left buttock, stage 4 (principal); I25.10 Atherosclerotic heart disease of native coronary artery without angina pectoris; I51.9 Heart disease, unspecified; I73.9 Peripheral vascular disease, unspecified | CPT/HCPCS: 99213 ==

== ENCOUNTER → 2025-05-09 10:57 | Outpatient (REF) | payer MEDICARE, OTHER, SELFPAY | LOC: WOUND 10:57 | PROVIDERS: ATTENDING PHYSICIAN Surgery; FAMILY PHYSICIAN Family Medicine | DX: L89.324 Pressure ulcer of left buttock, stage 4 (principal); I25.10 Atherosclerotic heart disease of native coronary artery without angina pectoris; I51.9 Heart disease, unspecified; I73.9 Peripheral vascular disease, unspecified | CPT/HCPCS: 99212 ==

== ENCOUNTER → 2025-07-06 12:19 | Outpatient (REF) | payer MEDICARE, OTHER, SELFPAY | LOC: DHVS 12:19 | PROVIDERS: ATTENDING PHYSICIAN Surgery Vascular Surgery | DX: I73.9 Peripheral vascular disease, unspecified (principal); I65.23 Occlusion and stenosis of bilateral carotid arteries | CPT/HCPCS: 93880; 93922; 93925; 93978 ==

== ENCOUNTER → 2025-07-12 09:10 | Outpatient (REF) | payer MEDICARE, OTHER, SELFPAY | LOC: REG 09:10 | PROVIDERS: ATTENDING PHYSICIAN Family Medicine | DX: Z01.812 Encounter for preprocedural laboratory examination (principal) | CPT/HCPCS: 36415; 82565 ==

== ENCOUNTER → 2025-07-19 12:42 | Outpatient (REF) | payer MEDICARE, OTHER, SELFPAY | LOC: RAD 12:42 | PROVIDERS: ATTENDING PHYSICIAN Family Medicine | DX: J18.9 Pneumonia, unspecified organism (principal) | CPT/HCPCS: 71260; Q9967 ==